=== PATIENT | female | born 1940 | race Caucasian/White ===

== ENCOUNTER 2019-03-22 07:36 | Day surgery (SDC) | payer MEDICARE, OTHER ==
[2019-03-19 09:45] LABS: BASOPHILS % (AUTO) 0.3 % (0-1); EOSINOPHILS # (AUTO) 0.1 X10'3 (0-0.9); EOSINOPHILS % (AUTO) 1.5 % (0-6); HEMATOCRIT 38.7 % (35.0-45.0); HEMOGLOBIN 12.7 g/dl (12.0-16.0); LYMPHOCYTES # (AUTO) 0.6 X10'3 (1.1-4.8); LYMPHOCYTES % (AUTO) 14.1 % (21-51); MEAN CORPUSCULAR HEMOGLOBIN 31.1 PG (27.0-31.0); MEAN CORPUSCULAR HGB CONC 32.8 g/dL (33.0-36.5); MEAN CORPUSCULAR VOLUME 94.8 FL (78-98); MEAN PLATELET VOLUME 8.5 FL (7.4-10.4); MONOCYTES # (AUTO) 0.4 X10'3 (0-0.9); MONOCYTES % (AUTO) 9.2 % (2-12); NEUTROPHILS # (AUTO) 3.2 X10'3 (1.8-7.7); NEUTROPHILS % (AUTO) 74.9 % (42-75); PLATELET COUNT 104 X10'3 (140-440); RED BLOOD COUNT 4.08 X10'6 (4.20-5.60); WHITE BLOOD COUNT 4.3 X10'3 (4.5-11.0)
[2019-03-19 09:58] LABS: ALBUMIN 3.7 G/DL (3.4-5.0); ANION GAP 8 (8-16); BLOOD UREA NITROGEN 33 MG/DL (7-18); BUN/CREATININE RATIO 28.7 (6.6-38.0); CALCIUM 9.6 MG/DL (8.5-10.1); CHLORIDE 105 MMOL/L (99-107); CREATININE 1.15 MG/DL (0.40-0.90); GLUCOSE 121 MG/DL (70-104); POTASSIUM 4.8 MMOL/L (3.5-5.1); SODIUM 139 MMOL/L (135-145); TOTAL CARBON DIOXIDE 26.5 MMOL/L (24-32); eGFR 46 ML/MIN
[2019-03-19 10:01] LABS: PARTIAL THROMBOPLASTIN TIME 40 SECONDS (22-32)
[2019-03-22] VITALS (11 sets, daily range): BP systolic 105–122; BP diastolic 54–71
[~2019-03-22] VITALS: Ht 162.6 cm; Wt 93.4 kg
[2019-03-22] MEDS ORDERED: LORazepam 0.5 MG tablet PO PRN (08:05)
[2019-03-22] MEDS ORDERED: diphenhydrAMINE 25mg capsule PO PRN (08:05)
[2019-03-22] MEDS ORDERED: normal saline 1,000 ML IV SCH (08:05)
[2019-03-22] MEDS ORDERED: LISI-642 PO (08:17)
[2019-03-22] MEDS ORDERED: WARF5TAB PO (08:17)
[2019-03-22] MEDS ORDERED: FURO-150 PO (08:24)
[2019-03-22] MEDS ORDERED: ASCO1TAB39 PO (08:24)
[2019-03-22] MEDS ORDERED: DILT180C90 PO (08:24)
[2019-03-22] MEDS ORDERED: CHOL10002 PO (08:24)
[2019-03-22] MEDS ORDERED: METF500T PO (08:24)
[2019-03-22] MEDS ORDERED: POTA10TA19 PO (08:24)
[2019-03-22] MEDS ORDERED: ENOX40SY7 SUBCUT (08:24)
[2019-03-22] MEDS ORDERED: iohexol 350MG/ML 100ml bottle IV ONE (09:14)
[2019-03-22] MEDS ORDERED: midazolam 2 mg/2 ml injection ONE (09:14)
[2019-03-22] MEDS ORDERED: fentaNYL/PF 50MCG/1 ML 2ML syringe ONE (09:14)
[2019-03-22] MEDS ORDERED: LIDOcaine 1% (10mg/ml)w/preservative injection 20ml MDV ONE (09:14)
[2019-05-21] MEDS ORDERED: POTA-82 PO (11:15)
[2019-05-21] MEDS ORDERED: WARF6TAB49 PO (11:16)
[2019-05-21] MEDS ORDERED: FURO-149 PO (11:16)
== END 2019-03-22 14:40 | disposition home or self-care (01) ==
LOC: SSTAY O 07:36
PROVIDERS: ATTEND Internal Medicine Interventional Cardiology
DX: I25.10 Atherosclerotic heart disease of native coronary artery without angina pectoris (principal); I36.1 Nonrheumatic tricuspid (valve) insufficiency; I10 Essential (primary) hypertension; E11.9 Type 2 diabetes mellitus without complications; I48.2 Chronic atrial fibrillation; Z85.3 Personal history of malignant neoplasm of breast; Z79.899 Other long term (current) drug therapy; Z79.84 Long term (current) use of oral hypoglycemic drugs; Z79.01 Long term (current) use of anticoagulants; Z88.0 Allergy status to penicillin
CPT/HCPCS: 36415; 80048; 82948; 85025; 85610; 85730; 93458; 99152; C1769; J1644; J2001; J2250; J3010; J7030; Q0163; Q9967; A4620; A6258

== ENCOUNTER 2019-05-22 05:13 | Inpatient (IN) | payer MEDICARE, OTHER ==
[2019-05-17 09:13] LABS: ALANINE AMINOTRANSFERASE 25 U/L (12-78); ALBUMIN 3.9 G/DL (3.4-5.0); ALBUMIN/GLOBULIN RATIO 0.8 (1.1-1.5); ALKALINE PHOSPHATASE 86 IU/L (46-116); ANION GAP 10 (8-16); ASPARTATE AMINO TRANSFERASE 21 U/L (10-37); BILIRUBIN,TOTAL 1.1 MG/DL (0.1-1.0); BLOOD UREA NITROGEN 34 MG/DL (7-18); BUN/CREATININE RATIO 27.2 (6.6-38.0); CALCIUM 9.7 MG/DL (8.5-10.1); CHLORIDE 103 MMOL/L (99-107); CREATININE 1.25 MG/DL (0.40-0.90); GLUCOSE 121 MG/DL (70-104); POTASSIUM 4.3 MMOL/L (3.5-5.1); SODIUM 139 MMOL/L (135-145); TOTAL CARBON DIOXIDE 26.1 MMOL/L (24-32); TOTAL PROTEIN 8.7 G/DL (6.4-8.2); eGFR 42 ML/MIN
[2019-05-20 14:42] LABS: BASOPHILS % (AUTO) 0.1 % (0-1); EOSINOPHILS # (AUTO) 0.2 X10'3 (0-0.9); EOSINOPHILS % (AUTO) 3.9 % (0-6); LYMPHOCYTES # (AUTO) 0.8 X10'3 (1.1-4.8); LYMPHOCYTES % (AUTO) 14.8 % (21-51); MEAN CORPUSCULAR HEMOGLOBIN 31.9 PG (27.0-31.0); MEAN CORPUSCULAR HGB CONC 33.7 g/dL (33.0-36.5); MEAN CORPUSCULAR VOLUME 94.6 FL (78-98); MEAN PLATELET VOLUME 7.8 FL (7.4-10.4); MONOCYTES # (AUTO) 0.5 X10'3 (0-0.9); MONOCYTES % (AUTO) 9.7 % (2-12); NEUTROPHILS # (AUTO) 3.8 X10'3 (1.8-7.7); NEUTROPHILS % (AUTO) 71.5 % (42-75); PRE OP HEMATOCRIT 37.1 % (35.0-45.0); PRE OP HEMOGLOBIN 12.5 g/dL (12.0-16.0); PRE OP PLATELET COUNT 157 X10'3 (140-440); RED BLOOD COUNT 3.92 X10'6 (4.20-5.60); RED CELL DISTRIBUTION WIDTH 15.2 % (11.5-14.5)
[2019-05-20 14:42] LABS: CLARITY,URINE SLIGHTLY CLOUDY (Clear); COLOR,URINE YELLOW (Yellow); GLUCOSE, URINE NEGATIVE (Neg); KETONES,URINE NEGATIVE (Neg); LEUKOCYTE ESTERASE ,URINE TRACE (Neg); NITRITES, URINE POSITIVE (Neg); OCCULT BLOOD,URINE TRACE-INTACT (Neg); PH,URINE 6.5 (4.8-8.0); PROTEIN,URINE NEGATIVE (Neg); UROBILINOGEN,URINE 0.2 E.U/dL (0.2-1.0)
[2019-05-20 14:45] LABS: UA COLLECTION TYPE OTHER
[2019-05-20 14:48] LABS: PRE OP INR 1.1 INR; PRE OP PROTIME 11.9 SECONDS (9.0-12.0)
[2019-05-20 14:57] LABS: BACTERIA,URINE 4+ /HPF (Neg); MUCUS STRANDS FEW /LPF (Neg); RBC,URINE 0-2 /HPF (0-2); SQUAMOUS EPITHELIAL CELL,UR FEW /LPF (FEW)
[2019-05-21 06:45] LABS: ABG BASE EXCESS -0.2 mmol/L (-2.0-3.0); ABG HCO3 23.7 mmol/L (22.0-26.0); ABG PCO2 (T) 36.4 mmHg (35.0-45.0); ABG PH (T) 7.432 (7.350-7.450); ABG PO2 (T) 87.8 mmHg (83-108); ALLEN'S TEST Positive; FCOHb 0.5 % (0.5-1.5); FMetHb 0.1 % (0.3-1.12); FO2Hb 96.4 % (94-100); TOTAL HEMOGLOBIN 12.8 G/dl (12.0-16.0)
[2019-05-22] VITALS (17 sets, daily range): BP systolic 102–134; BP diastolic 50–70
[~2019-05-22] VITALS: Ht 162.6 cm; Wt 92.4 kg
[~2019-05-22 05:13] MED LIST: ASCO1TAB39 PO; CHOL10002 PO; DILT180C90 PO; FURO-149 PO; LISI-642 PO; MALTODEXTRIN/FRUCTOSE 0.68 KCAL/ML LIQUID 296ML BOTTLE PO ONE; METF500T PO; POTA-82 PO; ROPIVAcaine 0.5% (5mg/ml) 30ml vial ONE; WARF6TAB49 PO; iohexol 350MG/ML 100ml bottle IV ONE; ringers solution, lacted 1,000 ML IV SCH
[2019-05-22] MEDS ORDERED: MIDAZolam 5mg/ml 2ml vial IV ONE (05:30)
[2019-05-22] MEDS ORDERED: famotidine 20mg tablet PO ONE (05:30)
[2019-05-22] MEDS ORDERED: vancomycin inj 1,500 MG in normal saline 300ml IV soln IV ONE (05:30)
[2019-05-22] MEDS ORDERED: gabapentin 400mg capsule PO ONE (06:00)
[2019-05-22] MEDS ORDERED: MESSAGE TO NURSING PO ONE (06:00)
[2019-05-22] MEDS ORDERED: cefazolin/dext.iso 2gm/50ml 50 ML IV ONE (06:00)
[2019-05-22] MEDS ORDERED: metoprolol tartrate 12.5mg (1/2 tablet) PO ONE (06:00)
[2019-05-22] MEDS ORDERED: insulin regular, human 100 UNIT in normal saline 100ml IV soln 99 ML IV SCH ×2 (06:00)
[2019-05-22] MEDS ORDERED: mupirocin 2% nasal ointment 1gm UD NS ONE (06:00)
[2019-05-22] MEDS ORDERED: LIDOcaine 1% (10mg/ml) 2ml vial ONE (06:50)
[2019-05-22] MEDS ORDERED: SUFENTANIL CITRATE 50 MCG/ML 2ml ampule IV ONE (07:16)
[2019-05-22] MEDS ORDERED: midazolam 2 mg/2 ml injection ONE (07:17)
[2019-05-22] MEDS ORDERED: protamine sulf. 10mg/ml inj. IV ONE (07:48)
[2019-05-22] MEDS ORDERED: DOPamine/D5W 400mg/250ml bag IV ONE (07:48)
[2019-05-22] MEDS ORDERED: NORepinephrine bitartrate 8 MG in NS 250 ML BAG (32 mcg/ml) IV ONE ×2 (07:48→08:00)
[2019-05-22] MEDS ORDERED: isoflurane 100ml inhalation liquid IH ONE (07:48)
[2019-05-22] MEDS ORDERED: INSULIN R 100 UNIT in NS 100ML (1 UNIT/1 ML) BAG IV ONE (07:48)
[2019-05-22] MEDS ORDERED: aminocaproic acid 250 MG/1 ML inj. ONE (08:00)
[2019-05-22] MEDS ORDERED: potassium Cl 2 mEq/ml inj IV ONE (08:00)
[2019-05-22] MEDS ORDERED: LIDOcaine 2% (20 mg/ml) 5ml cardiac syringe ONE (08:00)
[2019-05-22] MEDS ORDERED: magnesium sulf 1 GM/2 ML ONE (08:00)
[2019-05-22] MEDS ORDERED: calcium chloride 100 MG/1 ML inj IV ONE (08:00)
[2019-05-22] MEDS ORDERED: sodium bicarbonate (8.4%) inj. 1 MEQ/ML ML ONE (08:00)
[2019-05-22] MEDS ORDERED: albumin (human) 25% 100 ML IV solution IV ONE (08:00)
[2019-05-22] MEDS ORDERED: heparin 10,000 units/1 ML INJ ONE (08:00)
[2019-05-22] MEDS ORDERED: methylPREDNISolone sod succ 1000mg vial ONE (08:00)
[2019-05-22] MEDS ORDERED: heparin 1,000 units/ml 10ml inj ONE (08:00)
[2019-05-22] MEDS ORDERED: phenylephrine 10mg/ml inj. ONE ×2 (08:00→13:18)
[2019-05-22 08:26] LABS: ABG HCO3 23.7 mmol/L (22.0-26.0); ABG OXYGEN SATURATION 99.4 % (95-98); ABG PCO2 35.5 mmHg (35.0-45.0); ABG PH 7.443 (7.350-7.450); ABG PO2 276.5 mmHg (60.0-100.0); CL (ABG) 102 mmol/L (99-107); FCOHb 0.6 % (0.5-1.5); FMetHb 0.4 % (0.3-1.12); FO2Hb 98.4 % (94-100); GLUCOSE (ABG) 102 mg/dl (70-104); IONIZED CA (ABG) 1.12 mmol/L (1.03-1.32); K (ABG) 4.3 mmol/L (3.3-5.1); NA (ABG) 136 mmol/L (135-145); TOTAL HEMOGLOBIN 11.7 G/dl (12.0-16.0)
[2019-05-22 09:20] LABS: ABG BASE EXCESS 1.2 mmol/L (-2.0-3.0); ABG HCO3 24.7 mmol/L (22.0-26.0); ABG OXYGEN SATURATION 99.4 % (95-98); ABG PCO2 34.5 mmHg (35.0-45.0); ABG PH 7.473 (7.350-7.450); ABG PO2 382.1 mmHg (60.0-100.0); CL (ABG) 100 mmol/L (99-107); FCOHb 0.5 % (0.5-1.5); FMetHb 0.4 % (0.3-1.12); FO2Hb 98.5 % (94-100); GLUCOSE (ABG) 110 mg/dl (70-104); IONIZED CA (ABG) 1.03 mmol/L (1.03-1.32); K (ABG) 4.1 mmol/L (3.3-5.1); NA (ABG) 136 mmol/L (135-145); TOTAL HEMOGLOBIN 8.8 G/dl (12.0-16.0)
[2019-05-22] MEDS ORDERED: ipratropium/albuterol 3ml nebule IH PRN (09:25)
[2019-05-22 09:46] LABS: ABG BASE EXCESS VENOUS -0.6 mmol/L; ABG HCO3 VENOUS 26.1 mmol/L; ABG PCO2 VENOUS 53.7 mmHg; ABG PO2 VENOUS 63.3 mmHg; CL (ABG) 100 mmol/L (99-107); FCOHb VENOUS 0.9 %; FHHb VENOUS 11.3 %; FMetHb VENOUS 0.4 %; FO2Hb VENOUS 87.4 %; GLUCOSE (ABG) 120 mg/dl (70-104); IONIZED CA (ABG) 1.08 mmol/L (1.03-1.32); K (ABG) 5.2 mmol/L (3.3-5.1); NA (ABG) 135 mmol/L (135-145); TOTAL HEMOGLOBIN 8.7 G/dl (12.0-16.0)
[2019-05-22 10:10] LABS: ABG BASE EXCESS -0.5 mmol/L (-2.0-3.0); ABG HCO3 23.6 mmol/L (22.0-26.0); ABG OXYGEN SATURATION 99.5 % (95-98); ABG PCO2 35.9 mmHg (35.0-45.0); ABG PH 7.435 (7.350-7.450); ABG PO2 399.9 mmHg (60.0-100.0); CL (ABG) 101 mmol/L (99-107); FCOHb 0.5 % (0.5-1.5); FMetHb 0.1 % (0.3-1.12); FO2Hb 98.9 % (94-100); GLUCOSE (ABG) 141 mg/dl (70-104); IONIZED CA (ABG) 1.06 mmol/L (1.03-1.32); K (ABG) 5.4 mmol/L (3.3-5.1); NA (ABG) 134 mmol/L (135-145)
[2019-05-22 10:41] LABS: ABG BASE EXCESS 2.6 mmol/L (-2.0-3.0); ABG HCO3 26.8 mmol/L (22.0-26.0); ABG OXYGEN SATURATION 99.2 % (95-98); ABG PCO2 39.4 mmHg (35.0-45.0); ABG PO2 308.6 mmHg (60.0-100.0); CL (ABG) 101 mmol/L (99-107); FCOHb 0.7 % (0.5-1.5); FMetHb 0.5 % (0.3-1.12); GLUCOSE (ABG) 154 mg/dl (70-104); IONIZED CA (ABG) 1.26 mmol/L (1.03-1.32); K (ABG) 5.3 mmol/L (3.3-5.1); NA (ABG) 136 mmol/L (135-145); TOTAL HEMOGLOBIN 8.9 G/dl (12.0-16.0)
[2019-05-22 10:55] LABS: ACT @ 1.70 U 371 SEC (193-297); ACT @ 2.84 U 551 SEC (260-420); BASELINE ACT 168 SEC (101-148); PATIENT WEIGHT 91.0k KG
[2019-05-22 11:25] LABS: ABG BASE EXCESS VENOUS -0.1 mmol/L; ABG HCO3 VENOUS 25.2 mmol/L; ABG PCO2 VENOUS 44.2 mmHg; ABG PO2 VENOUS 40.9 mmHg; CL (ABG) 101 mmol/L (99-107); FCOHb VENOUS 0.9 %; FHHb VENOUS 26.3 %; FMetHb VENOUS 0.5 %; FO2Hb VENOUS 72.3 %; GLUCOSE (ABG) 99 mg/dl (70-104); IONIZED CA (ABG) 1.23 mmol/L (1.03-1.32); K (ABG) 4.5 mmol/L (3.3-5.1); NA (ABG) 135 mmol/L (135-145); TOTAL HEMOGLOBIN 9.6 G/dl (12.0-16.0)
[2019-05-22] MEDS ORDERED: DOPamine 400mg/D5W 250ml 250 ML IV PRN (12:11)
[2019-05-22] MEDS ORDERED: sodium chloride 0.45% 1,000 ML IV SCH (12:11)
[2019-05-22] MEDS ORDERED: nitroGLYCERIN-Tridil 50MG/D5W 250 ML IV PRN (12:11)
[2019-05-22] MEDS ORDERED: niCARDipine-NS 40mg/200ml IVPB 200 ML IV PRN (12:11)
[2019-05-22] MEDS ORDERED: Neutra Phos packet PO PRN (12:15)
[2019-05-22] MEDS ORDERED: HYDROcodone/acetaminophen 10/325mg tab PO PRN (12:15)
[2019-05-22] MEDS ORDERED: normal saline 250ml IV soln 250 ML IV PRN (12:15)
[2019-05-22] MEDS ORDERED: dextrose 50%-water 50ml dispensing syringe IV PRN (12:15)
[2019-05-22] MEDS ORDERED: magnesium hydroxide 30ml (MOM) UD suspension PO PRN (12:15)
[2019-05-22] MEDS ORDERED: magnesium 2GM in 50ml NS 50 ML IV PRN (12:15)
[2019-05-22] MEDS ORDERED: insulin regular, human inj. 100 UNITS in normal saline 100ml IV soln 100 ML IV SCH ×2 (12:15)
[2019-05-22] MEDS ORDERED: sodium phosphate inj. 15 MMOL in dextrose 5%-water 150 ML IV PRN (12:15)
[2019-05-22] MEDS ORDERED: pantoprazole 40 MG vial IV ONE (12:15)
[2019-05-22] MEDS ORDERED: acetaminophen 325mg tablet PO PRN (12:15)
[2019-05-22] MEDS ORDERED: metoclopramide 5 mg/ml inj IV PRN (12:15)
[2019-05-22] MEDS ORDERED: magnesium 4gm in 100ml NS 100 ML IV PRN (12:15)
[2019-05-22] MEDS ORDERED: ondansetron/PF 4mg/2ml inj IV PRN (12:15)
[2019-05-22] MEDS ORDERED: morphine 4 MG/ML inj SYRINge IV PRN ×2 (12:15)
[2019-05-22] MEDS ORDERED: potassium Cl 20 mEq SR tablet PO PRN (12:15)
[2019-05-22] MEDS ORDERED: sodium phosphate inj. 30 MMOL in dextrose 5%-water 250 ML IV PRN (12:15)
[2019-05-22] MEDS: albumin (Human) 5% 250ml 250 ML IV PRN ×3 (12:45→16:27)
[2019-05-22 12:46] LABS: ABG BASE EXCESS -3.1 mmol/L (-2.0-3.0); ABG HCO3 22.1 mmol/L (22.0-26.0); ABG OXYGEN SATURATION 95.1 % (95-98); ABG PCO2 (T) 40.4 mmHg (35.0-45.0); ABG PH (T) 7.356 (7.350-7.450); ABG PO2 (T) 81.4 mmHg (83-108); FCOHb 0.3 % (0.5-1.5); FMetHb 0.2 % (0.3-1.12); FO2Hb 94.6 % (94-100); MINUTE VOLUME 7 L/min; PEEP 5 cm H2O; RESPIRATORY RATE 12 b/min; RESPIRATORY RATE (OBSERVED) 12 b/min; TIDAL VOLUME 550 mL; TOTAL HEMOGLOBIN 13.2 G/dl (12.0-16.0)
[2019-05-22 12:53] LABS: BASOPHILS % (AUTO) 0.1 % (0-1); EOSINOPHILS # (AUTO) 0.1 X10'3 (0-0.9); EOSINOPHILS % (AUTO) 0.9 % (0-6); HEMATOCRIT 37.5 % (35.0-45.0); HEMOGLOBIN 12.7 g/dl (12.0-16.0); LYMPHOCYTES # (AUTO) 0.8 X10'3 (1.1-4.8); LYMPHOCYTES % (AUTO) 8.2 % (21-51); MEAN CORPUSCULAR HEMOGLOBIN 32.2 PG (27.0-31.0); MEAN CORPUSCULAR VOLUME 94.8 FL (78-98); MEAN PLATELET VOLUME 7.7 FL (7.4-10.4); MONOCYTES # (AUTO) 0.8 X10'3 (0-0.9); MONOCYTES % (AUTO) 8.5 % (2-12); NEUTROPHILS # (AUTO) 7.7 X10'3 (1.8-7.7); NEUTROPHILS % (AUTO) 82.3 % (42-75); PLATELET COUNT 112 X10'3 (140-440); RED BLOOD COUNT 3.96 X10'6 (4.20-5.60); WHITE BLOOD COUNT 9.3 X10'3 (4.5-11.0)
[2019-05-22] MEDS ORDERED: insulin Lispro (HumaLOG) vial - multi-dose SQ SCH (13:00)
[2019-05-22 13:11] LABS: ALANINE AMINOTRANSFERASE 28 U/L (12-78); ALBUMIN 2.9 G/DL (3.4-5.0); ALKALINE PHOSPHATASE 51 IU/L (46-116); ANION GAP 10 (8-16); BILIRUBIN,TOTAL 1.2 MG/DL (0.1-1.0); BLOOD UREA NITROGEN 15 MG/DL (7-18); CHLORIDE 107 MMOL/L (99-107); CREATININE 1.07 MG/DL (0.40-0.90); GLUCOSE 159 MG/DL (70-104); MAGNESIUM 3.2 MG/DL (1.5-2.4); SODIUM 142 MMOL/L (135-145); TOTAL CARBON DIOXIDE 25.2 MMOL/L (24-32); TOTAL PROTEIN 5.8 G/DL (6.4-8.2); eGFR 50 ML/MIN
[2019-05-22 13:14] LABS: ASPARTATE AMINO TRANSFERASE 53 U/L (10-37); POTASSIUM 4.3 MMOL/L (3.5-5.1)
[2019-05-22] MEDS ORDERED: LIDOcaine 2% (20mg/ml) 5ml vial ONE (13:18)
[2019-05-22] MEDS ORDERED: acetaminophen 1,000mg/100ml IV 100 ML IV ONE (13:18)
[2019-05-22] MEDS ORDERED: rocuronium 10mg/ml inj IV ONE (13:18)
[2019-05-22] MEDS ORDERED: etomidate 2mg/ml inj. ONE (13:18)
[2019-05-22] MEDS ORDERED: epiNEPHrine 1 mg/ml inj ONE (13:18)
[2019-05-22 13:23] LABS: PARTIAL THROMBOPLASTIN TIME 29 SECONDS (22-32)
--- NOTE | 2019-05-22 13:23 | NUR ---
Nutrition consult: Pt s/p MVR, will need education once stable prior to d/c Addendum: 05/22/19 at [address] Amended: Links added.
[2019-05-22] MEDS: potassium Cl 20mEq/100mL bag 100 ML IV PRN ×3 (13:26→18:48)
[2019-05-22] MEDS: gabapentin 300mg capsule PO SCH ×2 (13:50→20:20)
[2019-05-22] MEDS: insulin regular, human 100 UNIT in normal saline 100ml IV soln 99 ML IV SCH ×2 (13:50)
[2019-05-22] MEDS ORDERED: albumin (Human) 5% 250ml 250 ML IV ONE ×2 (14:04→17:00)
[2019-05-22] MEDS ORDERED: NORepinephrine 8mg/ 250ml NS 250 ML IV SCH (14:05)
[2019-05-22 14:36] LABS: ACTIVATED CLOTTING TIME 135 SEC (101-148)
[2019-05-22] MEDS: ceFAZolin 1GM/D5W- ADD-VANTAGE 50 ML IV SCH ×2 (16:10→23:36)
--- NOTE | 2019-05-22 16:19 | NUR ---
1224 Received to room 2013, accompanied by MDs and surgical crew. Placed on ventilator, to monitoring analyst, arterial line and PA line pressure monitored. Chest tubes to suction at 20 cm. Larson cath to gravity drainage. Dressings are dry and intact. See assessment record. All vasoactive drugs are infusing via central line.
[2019-05-22 16:56] LABS: MAGNESIUM 2.9 MG/DL (1.5-2.4)
[2019-05-22 16:57] LABS: PHOSPHORUS 3.2 MG/DL (2.3-4.5)
[2019-05-22 16:58] LABS: POTASSIUM 5.2 MMOL/L (3.5-5.1)
[2019-05-22] MEDS ORDERED: albumin (Human) 5% 250ml 250 ML IV PRN (17:00)
[2019-05-22 18:10] LABS: BASOPHILS % (AUTO) 0.1 % (0-1); EOSINOPHILS % (AUTO) 0.1 % (0-6); HEMATOCRIT 33.2 % (35.0-45.0); LYMPHOCYTES # (AUTO) 0.3 X10'3 (1.1-4.8); LYMPHOCYTES % (AUTO) 3.3 % (21-51); MEAN CORPUSCULAR HEMOGLOBIN 31.4 PG (27.0-31.0); MEAN CORPUSCULAR HGB CONC 33.1 g/dL (33.0-36.5); MEAN PLATELET VOLUME 7.9 FL (7.4-10.4); MONOCYTES # (AUTO) 0.3 X10'3 (0-0.9); NEUTROPHILS # (AUTO) 7.2 X10'3 (1.8-7.7); NEUTROPHILS % (AUTO) 92.5 % (42-75); PLATELET COUNT 98 X10'3 (140-440); RED CELL DISTRIBUTION WIDTH 15.2 % (11.5-14.5); WHITE BLOOD COUNT 7.8 X10'3 (4.5-11.0)
[2019-05-22 18:11] LABS: ABG BASE EXCESS -2.5 mmol/L (-2.0-3.0); ABG OXYGEN SATURATION 98.7 % (95-98); ABG PCO2 (T) 37.1 mmHg (35.0-45.0); ABG PH (T) 7.391 (7.350-7.450); ABG PO2 (T) 174.1 mmHg (83-108); FCOHb 0.3 % (0.5-1.5); FMetHb 0.3 % (0.3-1.12); FO2Hb 98.1 % (94-100); MINUTE VOLUME 7 L/min; PEEP 10 cm H2O; RESPIRATORY RATE 12 b/min; RESPIRATORY RATE (OBSERVED) 12 b/min; TIDAL VOLUME 550 mL; TOTAL HEMOGLOBIN 11.9 G/dl (12.0-16.0)
[2019-05-22 18:21] LABS: ALBUMIN 3.8 G/DL (3.4-5.0); ANION GAP 10 (8-16); BLOOD UREA NITROGEN 17 MG/DL (7-18); CALCIUM 8.3 MG/DL (8.5-10.1); CHLORIDE 109 MMOL/L (99-107); GLUCOSE 125 MG/DL (70-104); MAGNESIUM 2.8 MG/DL (1.5-2.4); PHOSPHORUS 2.9 MG/DL (2.3-4.5); POTASSIUM 4.4 MMOL/L (3.5-5.1); SODIUM 143 MMOL/L (135-145); TOTAL CARBON DIOXIDE 24.2 MMOL/L (24-32); eGFR 54 ML/MIN
--- NOTE | 2019-05-22 18:28 | NUR ---
Problems reprioritized. Patient report given, questions answered & plan of care reviewed with Gloria Ludwig RN.
--- NOTE | 2019-05-22 18:30 | NUR ---
Patient in room CICU 2013. I have received report from Denise SERRANO and had the opportunity to ask questions and assume patient care.
--- NOTE | 2019-05-22 19:00 | NUR ---
Patient opens eyes and following commands, moves all extremities. Physical assessment done as documented. Will continue to monitor.
[2019-05-22] MEDS: docusate sod 100mg capsule PO SCH (20:00)
--- NOTE | 2019-05-22 20:00 | NUR ---
Rate on ventilator turned down to 10. Will continue to monitor patient.
[2019-05-22] MEDS: mupirocin 2% nasal ointment 1gm UD NS SCH (20:20)
[2019-05-22] MEDS: vancomycin/NS 1 GM ADD-VANTAGE 250 ML IV SCH (20:20)
--- NOTE | 2019-05-22 22:00 | NUR ---
Rate on ventilator tuned down to 8. Patient over breathing the ventilator and tolerating well. Will continue to monitor.
--- NOTE | 2019-05-22 23:00 | NUR ---
Patient out on CPAP on ventilator and tolerating well. Following commands. Educated patient on plan of care for extubation. Will continue to monitor.
[2019-05-22 23:29] LABS: BASOPHILS % (AUTO) 0.1 % (0-1); EOSINOPHILS % (AUTO) 0 % (0-6); HEMATOCRIT 31.6 % (35.0-45.0); HEMOGLOBIN 10.6 g/dl (12.0-16.0); LYMPHOCYTES # (AUTO) 0.4 X10'3 (1.1-4.8); LYMPHOCYTES % (AUTO) 4.6 % (21-51); MEAN CORPUSCULAR HEMOGLOBIN 31.9 PG (27.0-31.0); MEAN CORPUSCULAR HGB CONC 33.5 g/dL (33.0-36.5); MEAN CORPUSCULAR VOLUME 95.2 FL (78-98); MONOCYTES # (AUTO) 0.3 X10'3 (0-0.9); MONOCYTES % (AUTO) 3.2 % (2-12); NEUTROPHILS # (AUTO) 7.7 X10'3 (1.8-7.7); NEUTROPHILS % (AUTO) 92.1 % (42-75); PLATELET COUNT 93 X10'3 (140-440); RED BLOOD COUNT 3.32 X10'6 (4.20-5.60); RED CELL DISTRIBUTION WIDTH 15.1 % (11.5-14.5); WHITE BLOOD COUNT 8.4 X10'3 (4.5-11.0)
[2019-05-22 23:35] LABS: ABG BASE EXCESS -3.5 mmol/L (-2.0-3.0); ABG HCO3 18.5 mmol/L (22.0-26.0); ABG PCO2 (T) 24.5 mmHg (35.0-45.0); ABG PH (T) 7.495 (7.350-7.450); ABG PO2 (T) 109.9 mmHg (83-108); FCOHb 0.3 % (0.5-1.5); FMetHb 0.2 % (0.3-1.12); FO2Hb 97.5 % (94-100); MINUTE VOLUME 7 L/min; PATIENT TEMPERATURE 36.8; PEEP 5 cm H2O; RESPIRATORY RATE (OBSERVED) 18 b/min; TOTAL HEMOGLOBIN 11.2 G/dl (12.0-16.0)
[2019-05-22 23:39] LABS: ALANINE AMINOTRANSFERASE 30 U/L (12-78); ALBUMIN 3.6 G/DL (3.4-5.0); ALBUMIN/GLOBULIN RATIO 1.4 (1.1-1.5); ALKALINE PHOSPHATASE 47 IU/L (46-116); ANION GAP 10 (8-16); ASPARTATE AMINO TRANSFERASE 59 U/L (10-37); BILIRUBIN,TOTAL 1.1 MG/DL (0.1-1.0); BLOOD UREA NITROGEN 18 MG/DL (7-18); BUN/CREATININE RATIO 18.2 (6.6-38.0); CHLORIDE 110 MMOL/L (99-107); CREATININE 0.99 MG/DL (0.40-0.90); GLUCOSE 127 MG/DL (70-104); POTASSIUM 4.7 MMOL/L (3.5-5.1); SODIUM 143 MMOL/L (135-145); TOTAL CARBON DIOXIDE 23.3 MMOL/L (24-32); TOTAL PROTEIN 6.2 G/DL (6.4-8.2); eGFR 55 ML/MIN
--- NOTE | 2019-05-22 23:45 | NUR ---
RT at beside to extubate patient. Patient extubated at 2345 without any issue and educated on IS and flutter valve. Patient also educated on sternal precautions . Will continue to monitor.
[2019-05-23] VITALS (24 sets, daily range): BP systolic 93–134; BP diastolic 44–61
[2019-05-23] MEDS: HYDROcodone/acetaminophen 10/325mg tab PO PRN ×2 (02:11→07:29)
[2019-05-23 03:56] LABS: BASOPHILS % (AUTO) 0 % (0-1); EOSINOPHILS % (AUTO) 0 % (0-6); HEMATOCRIT 30.5 % (35.0-45.0); HEMOGLOBIN 10.2 g/dl (12.0-16.0); LYMPHOCYTES # (AUTO) 0.4 X10'3 (1.1-4.8); LYMPHOCYTES % (AUTO) 3.8 % (21-51); MEAN CORPUSCULAR HEMOGLOBIN 31.9 PG (27.0-31.0); MEAN CORPUSCULAR HGB CONC 33.5 g/dL (33.0-36.5); MEAN CORPUSCULAR VOLUME 95.3 FL (78-98); MEAN PLATELET VOLUME 8.2 FL (7.4-10.4); MONOCYTES # (AUTO) 0.3 X10'3 (0-0.9); MONOCYTES % (AUTO) 3.3 % (2-12); NEUTROPHILS % (AUTO) 92.9 % (42-75); PLATELET COUNT 90 X10'3 (140-440); RED CELL DISTRIBUTION WIDTH 15.2 % (11.5-14.5); WHITE BLOOD COUNT 9.7 X10'3 (4.5-11.0)
[2019-05-23 04:06] LABS: PARTIAL THROMBOPLASTIN TIME 27 SECONDS (22-32)
[2019-05-23 04:18] LABS: ALANINE AMINOTRANSFERASE 29 U/L (12-78); ALBUMIN 3.5 G/DL (3.4-5.0); ALBUMIN/GLOBULIN RATIO 1.3 (1.1-1.5); ALKALINE PHOSPHATASE 44 IU/L (46-116); ANION GAP 8 (8-16); ASPARTATE AMINO TRANSFERASE 56 U/L (10-37); BILIRUBIN,TOTAL 0.9 MG/DL (0.1-1.0); BLOOD UREA NITROGEN 19 MG/DL (7-18); BUN/CREATININE RATIO 20.2 (6.6-38.0); CALCIUM 8.5 MG/DL (8.5-10.1); CHLORIDE 110 MMOL/L (99-107); CREATININE 0.94 MG/DL (0.40-0.90); GLUCOSE 129 MG/DL (70-104); MAGNESIUM 2.5 MG/DL (1.5-2.4); PHOSPHORUS 4.7 MG/DL (2.3-4.5); POTASSIUM 4.3 MMOL/L (3.5-5.1); SODIUM 143 MMOL/L (135-145); TOTAL PROTEIN 6.1 G/DL (6.4-8.2); eGFR 58 ML/MIN
[2019-05-23] MEDS: potassium Cl 20mEq/100mL bag 100 ML IV PRN (04:38)
[2019-05-23] MEDS: insulin regular, human 100 UNIT in normal saline 100ml IV soln 99 ML IV SCH ×2 (06:00)
--- NOTE | 2019-05-23 06:23 | NUR ---
Problems reprioritized. Patient report given, questions answered & plan of care reviewed with Dee SERRANO.
--- NOTE | 2019-05-23 06:25 | NUR ---
Patient in room CICU 2013. I have received report from Gloria SERRANO and had the opportunity to ask questions and assume patient care.
--- NOTE | 2019-05-23 06:36 | NUR ---
Patient in room CICU 2013. I have received report from MAGGIE Castro and had the opportunity to ask questions and assume patient care.
[2019-05-23] MEDS: cholecalciferol (vitamin D) 400 unit tablet PO SCH (07:21)
[2019-05-23] MEDS: docusate sod 100mg capsule PO SCH ×2 (07:21→20:42)
[2019-05-23] MEDS: gabapentin 300mg capsule PO SCH ×3 (07:21→20:42)
[2019-05-23] MEDS: atorvastatin 10mg tablet PO SCH (07:22)
[2019-05-23] MEDS: ceFAZolin 1GM/D5W- ADD-VANTAGE 50 ML IV SCH ×2 (07:22→15:53)
[2019-05-23] MEDS: mupirocin 2% nasal ointment 1gm UD NS SCH ×2 (07:23→20:41)
[2019-05-23] MEDS: metoprolol tartrate 12.5mg (1/2 tablet) PO SCH ×2 (08:00→20:00)
[2019-05-23] MEDS ORDERED: aspirin 325mg tablet, delayed-release (Ecotrin) PO SCH (08:00)
[2019-05-23] MEDS: vancomycin/NS 1 GM ADD-VANTAGE 250 ML IV SCH ×2 (08:05→20:41)
[2019-05-23] MEDS ORDERED: dextrose ORAL solution 15 GM/59 ML bottle PO PRN ×2 (09:00)
[2019-05-23] MEDS ORDERED: dextrose 50%-water 50ml dispensing syringe IV PRN ×2 (09:00)
--- NOTE | 2019-05-23 09:55 | NUR ---
PA line and introducer removed; pressure applied until hemostasis achieved. New dressing applied to central line site. No abnormal signs of bleeding at PA site. will continue to monitor.
--- NOTE | 2019-05-23 12:21 | NUR ---
Restarted low dose of Levophed at 2mcg/hr as patient sleeps as her systolic dips down into low 90s and MAP does not maintain. PA site leaking some serous/serosanginous fluid. Dressing changed again.
--- NOTE | 2019-05-23 14:31 | NUR ---
Levo Off again, patient up to bedside chair
[2019-05-23] MEDS: insulin glargine (Lantus) pen - multi-dose SQ SCH (15:08)
[2019-05-23] MEDS: insulin Lispro (HumaLOG) vial - multi-dose SQ SCH (19:35)
[2019-05-24] VITALS (19 sets, daily range): BP systolic 100–146; BP diastolic 44–74
[2019-05-24] MEDS: ceFAZolin 1GM/D5W- ADD-VANTAGE 50 ML IV SCH (00:17)
[2019-05-24 03:44] LABS: BASOPHILS % (AUTO) 0.1 % (0-1); EOSINOPHILS % (AUTO) 0 % (0-6); HEMOGLOBIN 9.4 g/dl (12.0-16.0); LYMPHOCYTES # (AUTO) 0.4 X10'3 (1.1-4.8); LYMPHOCYTES % (AUTO) 3.5 % (21-51); MEAN CORPUSCULAR HEMOGLOBIN 31.9 PG (27.0-31.0); MEAN CORPUSCULAR HGB CONC 33.4 g/dL (33.0-36.5); MEAN CORPUSCULAR VOLUME 95.7 FL (78-98); MEAN PLATELET VOLUME 8.6 FL (7.4-10.4); MONOCYTES # (AUTO) 0.7 X10'3 (0-0.9); MONOCYTES % (AUTO) 6.1 % (2-12); NEUTROPHILS # (AUTO) 10.8 X10'3 (1.8-7.7); NEUTROPHILS % (AUTO) 90.3 % (42-75); PLATELET COUNT 96 X10'3 (140-440); RED BLOOD COUNT 2.93 X10'6 (4.20-5.60); RED CELL DISTRIBUTION WIDTH 15.1 % (11.5-14.5)
[2019-05-24 03:53] LABS: ALBUMIN 3.4 G/DL (3.4-5.0); ANION GAP 6 (8-16); BLOOD UREA NITROGEN 31 MG/DL (7-18); BUN/CREATININE RATIO 27.4 (6.6-38.0); CALCIUM 8.7 MG/DL (8.5-10.1); CHLORIDE 106 MMOL/L (99-107); CREATININE 1.13 MG/DL (0.40-0.90); GLUCOSE 199 MG/DL (70-104); MAGNESIUM 2.5 MG/DL (1.5-2.4); PHOSPHORUS 3.7 MG/DL (2.3-4.5); POTASSIUM 5.6 MMOL/L (3.5-5.1); SODIUM 137 MMOL/L (135-145); TOTAL CARBON DIOXIDE 24.6 MMOL/L (24-32); eGFR 47 ML/MIN
[2019-05-24] MEDS: insulin regular, human 100 UNIT in normal saline 100ml IV soln 99 ML IV SCH ×2 (06:00)
--- NOTE | 2019-05-24 06:15 | NUR ---
Patient in room CICU 2012. I have received report from machinist 2nd shift and had the opportunity to ask questions and assume patient care.
[2019-05-24] MEDS: metoprolol tartrate 12.5mg (1/2 tablet) PO SCH (08:05)
[2019-05-24] MEDS: pantoprazole 40mg Tablet.DR PO SCH (08:05)
[2019-05-24] MEDS: cholecalciferol (vitamin D) 400 unit tablet PO SCH (08:05)
[2019-05-24] MEDS: atorvastatin 10mg tablet PO SCH (08:05)
[2019-05-24] MEDS: aspirin 81mg tablet.DR PO SCH (08:06)
[2019-05-24] MEDS: docusate sod 100mg capsule PO SCH ×2 (08:06→20:48)
[2019-05-24] MEDS: gabapentin 300mg capsule PO SCH ×2 (08:06→20:49)
[2019-05-24] MEDS: mupirocin 2% nasal ointment 1gm UD NS SCH (08:06)
[2019-05-24] MEDS ORDERED: furosemide 40mg/4ml inj IV ONE (08:20)
[2019-05-24] MEDS ORDERED: potassium Cl 20 mEq SR tablet PO PRN ×2 (08:25)
[2019-05-24] MEDS ORDERED: potassium CL 10mEq/100ml bag 100 ML IV PRN ×2 (08:25)
[2019-05-24] MEDS ORDERED: magnesium 2GM in 50ml NS 50 ML IV PRN (08:25)
[2019-05-24] MEDS ORDERED: magnesium 4gm in 100ml NS 100 ML IV PRN (08:25)
[2019-05-24] MEDS ORDERED: magnesium Cl slow-release 64mg tablet PO PRN (08:25)
[2019-05-24] MEDS: insulin Lispro (HumaLOG) vial - multi-dose SQ SCH ×3 (08:39→20:19)
[2019-05-24 13:07] LABS: CLARITY,URINE CLEAR (Clear); GLUCOSE, URINE NEGATIVE (Neg); KETONES,URINE NEGATIVE (Neg); LEUKOCYTE ESTERASE ,URINE MODERATE (Neg); NITRITES, URINE POSITIVE (Neg); OCCULT BLOOD,URINE SMALL (Neg); PH,URINE 5.5 (4.8-8.0); PROTEIN,URINE NEGATIVE (Neg); UROBILINOGEN,URINE 0.2 E.U/dL (0.2-1.0)
[2019-05-24 13:08] LABS: COLOR,URINE COLORLESS (Yellow); UA COLLECTION TYPE FOLEY CATH
[2019-05-24 13:27] LABS: SQUAMOUS EPITHELIAL CELL,UR MODERATE /LPF (FEW)
[2019-05-24 13:28] LABS: YEAST FEW /HPF (NEGATIVE)
[2019-05-24 13:31] LABS: BACTERIA,URINE FEW /HPF (Neg); RBC,URINE 0-2 /HPF (0-2); TRANSITIONAL EPI CELLS,URINE FEW /HPF
[2019-05-24] MEDS: diltiazem CD 180mg cap (once-daily) PO SCH (14:44)
--- NOTE | 2019-05-24 17:30 | NUR ---
Transferred to RANDLEMAN on monitor
--- NOTE | 2019-05-24 17:42 | NUR ---
RECEIVED PATIENT AND REPORT FROM [facility]. PLACED PATIENT IN ROOM 314. PATIENT UP IN CHAIR, CALL LIGHT IN REACH. DENIES CHEST PAIN, SOB AND ,OR, NAUSEA. Addendum: 05/24/19 at 1746 by Maureen Mariano RN Amended: Links added.
--- NOTE | 2019-05-24 18:00 | NUR ---
Patient in room MED 314. I have received report from Katty SERRANO and had the opportunity to ask questions and assume patient care.
[2019-05-24] MEDS: magnesium Cl slow-release 64mg tablet PO SCH (20:00)
[2019-05-24] MEDS: potassium Cl 20 mEq SR tablet PO SCH (20:00)
[2019-05-24] MEDS: lisinopril 2.5mg tablet PO SCH (20:52)
[2019-05-24] MEDS ORDERED: warfarin 5mg tablet PO ONE (21:00)
[2019-05-24] MEDS: insulin glargine (Lantus) pen - multi-dose SQ SCH (22:30)
[2019-05-25 02:00] VITALS: BP 91/46
[2019-05-25 06:00] VITALS: BP 95/38
--- NOTE | 2019-05-25 06:00 | NUR ---
Problems reprioritized. Patient report given, questions answered & plan of care reviewed with Hiwot SERRANO.
--- NOTE | 2019-05-25 06:10 | NUR ---
Patient in room MED 314. I have received report from MAGGIE Hunter and had the opportunity to ask questions and assume patient care.
[2019-05-25 07:40] LABS: BASOPHILS % (AUTO) 0.2 % (0-1); EOSINOPHILS % (AUTO) 0.4 % (0-6); HEMATOCRIT 29.4 % (35.0-45.0); HEMOGLOBIN 10.1 g/dl (12.0-16.0); LYMPHOCYTES # (AUTO) 1.1 X10'3 (1.1-4.8); LYMPHOCYTES % (AUTO) 10.5 % (21-51); MEAN CORPUSCULAR HEMOGLOBIN 32.6 PG (27.0-31.0); MEAN CORPUSCULAR HGB CONC 34.4 g/dL (33.0-36.5); MEAN CORPUSCULAR VOLUME 94.8 FL (78-98); MEAN PLATELET VOLUME 8.2 FL (7.4-10.4); MONOCYTES # (AUTO) 0.9 X10'3 (0-0.9); MONOCYTES % (AUTO) 8.3 % (2-12); NEUTROPHILS # (AUTO) 8.6 X10'3 (1.8-7.7); NEUTROPHILS % (AUTO) 80.6 % (42-75); PLATELET COUNT 114 X10'3 (140-440); RED CELL DISTRIBUTION WIDTH 15.4 % (11.5-14.5); WHITE BLOOD COUNT 10.7 X10'3 (4.5-11.0)
[2019-05-25 07:43] LABS: ALBUMIN 3.4 G/DL (3.4-5.0); ANION GAP 8 (8-16); BLOOD UREA NITROGEN 37 MG/DL (7-18); BUN/CREATININE RATIO 32.5 (6.6-38.0); CALCIUM 8.7 MG/DL (8.5-10.1); CHLORIDE 103 MMOL/L (99-107); CREATININE 1.14 MG/DL (0.40-0.90); GLUCOSE 112 MG/DL (70-104); MAGNESIUM 2.1 MG/DL (1.5-2.4); POTASSIUM 4.3 MMOL/L (3.5-5.1); SODIUM 138 MMOL/L (135-145); TOTAL CARBON DIOXIDE 26.9 MMOL/L (24-32); eGFR 46 ML/MIN
[2019-05-25] MEDS: cholecalciferol (vitamin D) 400 unit tablet PO SCH (07:58)
[2019-05-25] MEDS: docusate sod 100mg capsule PO SCH ×2 (07:58→19:58)
[2019-05-25] MEDS: pantoprazole 40mg Tablet.DR PO SCH (07:58)
[2019-05-25] MEDS: aspirin 81mg tablet.DR PO SCH (07:58)
[2019-05-25] MEDS: potassium Cl 20 mEq SR tablet PO SCH ×2 (07:59→19:58)
[2019-05-25] MEDS: gabapentin 300mg capsule PO SCH ×2 (07:59→19:58)
[2019-05-25] MEDS: atorvastatin 10mg tablet PO SCH (07:59)
[2019-05-25] MEDS: magnesium Cl slow-release 64mg tablet PO SCH ×2 (07:59→19:58)
[2019-05-25] MEDS: diltiazem CD 180mg cap (once-daily) PO SCH (08:00)
[2019-05-25] MEDS: K and/or MAG REPLACEMENT MC SCH (08:00)
[2019-05-25] MEDS: insulin Lispro (HumaLOG) vial - multi-dose SQ SCH ×3 (08:59→19:57)
[2019-05-25 10:00] VITALS: BP 91/38
[2019-05-25] MEDS ORDERED: furosemide 40mg/4ml inj IV ONE (11:05)
[2019-05-25 14:00] VITALS: BP 89/38
--- NOTE | 2019-05-25 17:41 | NUR ---
Orienteer documentation: I have reviewed and agree with all interventions, assessments performed and documented by Hiwot SERRANO.
[2019-05-25 18:00] VITALS: BP 90/41
--- NOTE | 2019-05-25 18:00 | NUR ---
Patient in room MED 314. I have received report from Swati SERRANO and had the opportunity to ask questions and assume patient care.
--- NOTE | 2019-05-25 18:13 | NUR ---
Problems reprioritized. Patient report given, questions answered & plan of care reviewed with MAGGIE Hunter.
[2019-05-25] MEDS: lisinopril 2.5mg tablet PO SCH (21:00)
[2019-05-25] MEDS: warfarin 3mg tablet PO ONE ×2 (21:40→23:09)
[2019-05-25] MEDS: insulin glargine (Lantus) pen - multi-dose SQ SCH (21:55)
--- NOTE | 2019-05-25 21:59 | NUR ---
Patient given 12 units lantus; patient got 20 units last night based on protocol and adjustment for 1503 time of lantus given in ICU 05/23 prior to transfer. Patient requested 12 units only bharath,consulted with rail car repairmanMAGGIE Jiménez RN and administered 12 units Lantus 05/25 at 2145
[2019-05-25 22:00] VITALS: BP 98/41
[2019-05-26 02:00] VITALS: BP 86/47
[2019-05-26 06:00] VITALS: BP 83/38
--- NOTE | 2019-05-26 06:35 | NUR ---
I have received report from Elsa SERRANO and had the opportunity to ask questions and assume patient care.
[2019-05-26 07:19] LABS: BASOPHILS % (AUTO) 0.1 % (0-1); EOSINOPHILS # (AUTO) 0.2 X10'3 (0-0.9); EOSINOPHILS % (AUTO) 2.2 % (0-6); HEMOGLOBIN 9.2 g/dl (12.0-16.0); LYMPHOCYTES # (AUTO) 0.8 X10'3 (1.1-4.8); LYMPHOCYTES % (AUTO) 12.1 % (21-51); MEAN CORPUSCULAR HEMOGLOBIN 32.3 PG (27.0-31.0); MEAN CORPUSCULAR HGB CONC 34.1 g/dL (33.0-36.5); MEAN CORPUSCULAR VOLUME 94.7 FL (78-98); MEAN PLATELET VOLUME 8.1 FL (7.4-10.4); MONOCYTES # (AUTO) 0.6 X10'3 (0-0.9); NEUTROPHILS # (AUTO) 5.2 X10'3 (1.8-7.7); NEUTROPHILS % (AUTO) 76.6 % (42-75); PLATELET COUNT 113 X10'3 (140-440); RED BLOOD COUNT 2.85 X10'6 (4.20-5.60); RED CELL DISTRIBUTION WIDTH 14.9 % (11.5-14.5); WHITE BLOOD COUNT 6.8 X10'3 (4.5-11.0)
[2019-05-26 07:42] LABS: ANION GAP 7 (8-16); BLOOD UREA NITROGEN 32 MG/DL (7-18); CALCIUM 8.3 MG/DL (8.5-10.1); CHLORIDE 107 MMOL/L (99-107); CREATININE 0.94 MG/DL (0.40-0.90); GLUCOSE 94 MG/DL (70-104); MAGNESIUM 2.2 MG/DL (1.5-2.4); POTASSIUM 4.8 MMOL/L (3.5-5.1); SODIUM 141 MMOL/L (135-145); TOTAL CARBON DIOXIDE 26.7 MMOL/L (24-32); eGFR 58 ML/MIN
[2019-05-26] MEDS: docusate sod 100mg capsule PO SCH ×2 (08:00→20:25)
[2019-05-26] MEDS ORDERED: furosemide 40mg tablet PO SCH (08:00)
[2019-05-26] MEDS: K and/or MAG REPLACEMENT MC SCH (08:00)
[2019-05-26] MEDS ORDERED: diltiazem CD 120mg capsule (once-daily) PO SCH (08:00)
[2019-05-26] MEDS ORDERED: furosemide 20MG tablet PO SCH (08:59)
[2019-05-26] MEDS: pantoprazole 40mg Tablet.DR PO SCH (09:14)
[2019-05-26] MEDS: magnesium Cl slow-release 64mg tablet PO SCH ×2 (09:14→20:24)
[2019-05-26] MEDS: gabapentin 300mg capsule PO SCH ×2 (09:14→20:24)
[2019-05-26] MEDS: aspirin 81mg tablet.DR PO SCH (09:14)
[2019-05-26] MEDS: cholecalciferol (vitamin D) 400 unit tablet PO SCH (09:14)
[2019-05-26] MEDS: potassium Cl 20 mEq SR tablet PO SCH ×2 (09:15→20:00)
[2019-05-26] MEDS: insulin Lispro (HumaLOG) vial - multi-dose SQ SCH ×3 (09:27→18:54)
--- NOTE | 2019-05-26 10:04 | NUR ---
I spoke with Osorio VALERIO about the pt's BP. The pt. had a 96 systolic this morning and he was ok with giving the Cardizem and Lasix after we cut the Lasix down to 20mg from 40mg.
[2019-05-26 11:00] VITALS: BP 85/49
--- NOTE | 2019-05-26 11:20 | NUR ---
Initial: Pt s/p MVR hx Guillan-Gifford, CHF, HTN, and T2DM A1C <7. RD provided written/verbal MVR/HH diet eds to pt along w/ RD contact information. Pt PO 75-100% meals meeting healing needs; endorses good appetite. LBM 05/25; receiving routine colace w/ MoM PRN. No nutrition concerns at this time. Will continue to monitor. Rec: 1. continue carb controlled/NCS diet per MD 2. routine bowel care Addendum: 05/26/19 at [address] Amended: Links added.
[2019-05-26 15:00] VITALS: BP 100/44
[2019-05-26 18:00] VITALS: BP 98/54
--- NOTE | 2019-05-26 18:20 | NUR ---
Patient in room MED 314. I have received report from MAGGIE Ramires and had the opportunity to ask questions and assume patient care.
--- NOTE | 2019-05-26 18:20 | NUR ---
Problems reprioritized. Patient report given, questions answered & plan of care reviewed with Kervin SERRANO.
[2019-05-26] MEDS: lisinopril 2.5mg tablet PO SCH (20:29)
[2019-05-26] MEDS ORDERED: warfarin 3mg tablet PO ONE (21:00)
[2019-05-26] MEDS: insulin glargine (Lantus) pen - multi-dose SQ SCH (21:39)
[2019-05-26 22:00] VITALS: BP 101/56
[2019-05-27 02:00] VITALS: BP 112/58
[2019-05-27 06:00] VITALS: BP 106/63
--- NOTE | 2019-05-27 06:00 | NUR ---
Reviewed and agreed with MAGGIE Reyes's charting
--- NOTE | 2019-05-27 06:10 | NUR ---
Patient in room MED 314. I have received report from MAGGIE Ryees and had the opportunity to ask questions and assume patient care.
--- NOTE | 2019-05-27 06:20 | NUR ---
Problems reprioritized. Patient report given, questions answered & plan of care reviewed with MAGGIE Phoenix.
[2019-05-27 06:34] LABS: BASOPHILS % (AUTO) 0.1 % (0-1); EOSINOPHILS # (AUTO) 0.4 X10'3 (0-0.9); EOSINOPHILS % (AUTO) 4.9 % (0-6); HEMATOCRIT 27.1 % (35.0-45.0); HEMOGLOBIN 9.5 g/dl (12.0-16.0); LYMPHOCYTES # (AUTO) 0.7 X10'3 (1.1-4.8); LYMPHOCYTES % (AUTO) 10.3 % (21-51); MEAN CORPUSCULAR HEMOGLOBIN 33.2 PG (27.0-31.0); MEAN CORPUSCULAR HGB CONC 34.9 g/dL (33.0-36.5); MEAN PLATELET VOLUME 7.8 FL (7.4-10.4); MONOCYTES # (AUTO) 0.8 X10'3 (0-0.9); MONOCYTES % (AUTO) 10.5 % (2-12); NEUTROPHILS # (AUTO) 5.4 X10'3 (1.8-7.7); NEUTROPHILS % (AUTO) 74.2 % (42-75); PLATELET COUNT 133 X10'3 (140-440); RED BLOOD COUNT 2.85 X10'6 (4.20-5.60); WHITE BLOOD COUNT 7.3 X10'3 (4.5-11.0)
[2019-05-27 06:42] LABS: ALBUMIN 2.9 G/DL (3.4-5.0); ANION GAP 8 (8-16); BLOOD UREA NITROGEN 28 MG/DL (7-18); BUN/CREATININE RATIO 31.8 (6.6-38.0); CALCIUM 8.5 MG/DL (8.5-10.1); CHLORIDE 106 MMOL/L (99-107); CREATININE 0.88 MG/DL (0.40-0.90); GLUCOSE 111 MG/DL (70-104); MAGNESIUM 2.1 MG/DL (1.5-2.4); POTASSIUM 4.7 MMOL/L (3.5-5.1); SODIUM 140 MMOL/L (135-145); eGFR 62 ML/MIN
[2019-05-27] MEDS: potassium Cl 20 mEq SR tablet PO SCH (07:55)
[2019-05-27] MEDS: diltiazem 30mg tablet PO SCH ×2 (07:57→13:49)
[2019-05-27] MEDS: docusate sod 100mg capsule PO SCH (07:57)
[2019-05-27] MEDS: aspirin 81mg tablet.DR PO SCH (07:57)
[2019-05-27] MEDS: cholecalciferol (vitamin D) 400 unit tablet PO SCH (07:57)
[2019-05-27] MEDS: pantoprazole 40mg Tablet.DR PO SCH (07:57)
[2019-05-27] MEDS: magnesium Cl slow-release 64mg tablet PO SCH (07:58)
[2019-05-27] MEDS: gabapentin 300mg capsule PO SCH (07:58)
[2019-05-27] MEDS ORDERED: furosemide 40mg tablet PO SCH (08:00)
[2019-05-27] MEDS: K and/or MAG REPLACEMENT MC SCH (08:00)
[2019-05-27] MEDS: insulin Lispro (HumaLOG) vial - multi-dose SQ SCH ×2 (08:13→13:51)
[2019-05-27 11:00] VITALS: BP 94/47
[2019-05-27 15:00] VITALS: BP 92/45
--- NOTE | 2019-05-27 16:00 | NUR ---
Orientee med administration & documentation: I have reviewed and agree with all interventions, assessments performed and documented by Hiwot SERRANO.
[2019-05-27] MEDS ORDERED: fluconazole 150mg tablet PO STA (16:12)
--- NOTE | 2019-05-27 16:13 | NUR ---
Spoke Osorio VALERIO. Made him aware that lab called to inform us that yeast was growing in the urine. Received orders for diflucan 150mg x 1 dose.
--- NOTE | 2019-05-27 16:30 | NUR ---
Patient stable for discharge to SNF per MD orders. Report called to Sirena at [facility]. PIV discontinued; cannula intact; clean, dry dressing in place. surveillance system monitor removed. All personal belongings collected and sent with patient. Patient wheeled out of facility by randy cargo to be transported by [facility] to [facility] at 1630.
[2019-05-27] MEDS ORDERED: warfarin 7.5mg tablet PO ONE (21:00)
== END 2019-05-27 16:35 | DRG 220 ==
LOC: PAS IN 05:13 → EDSTATUS 08:30 → CICU 2S 12:41 → MED 3N 05-24 18:28
PROVIDERS: ADMIT Thoracic Surgery (Cardiothoracic Vascular Surgery); ATTEND Thoracic Surgery (Cardiothoracic Vascular Surgery)
PROC: 02UJ08Z Supplement Tricuspid Valve with Zooplastic Tissue, Open Approach (ICD-10-PCS; 2019-05-22)
PROC: 5A1221Z Performance of Cardiac Output, Continuous (ICD-10-PCS; 2019-05-22)
PROC: 02L70CK Occlusion of Left Atrial Appendage with Extraluminal Device, Open Approach (ICD-10-PCS; 2019-05-22)
PROC: B24BZZ4 Ultrasonography of Heart with Aorta, Transesophageal (ICD-10-PCS; 2019-05-22)
PROC: 02HV33Z Insertion of Infusion Device into Superior Vena Cava, Percutaneous Approach (ICD-10-PCS; 2019-05-22)
PROC: 4A133B3 Monitoring of Arterial Pressure, Pulmonary, Percutaneous Approach (ICD-10-PCS; 2019-05-22)
PROC: 02HP32Z Insertion of Monitoring Device into Pulmonary Trunk, Percutaneous Approach (ICD-10-PCS; 2019-05-22)
PROC: 02UG08Z Supplement Mitral Valve with Zooplastic Tissue, Open Approach (ICD-10-PCS; principal; 2019-05-22 07:48)
DX: I08.1 Rheumatic disorders of both mitral and tricuspid valves (principal); I50.32 Chronic diastolic (congestive) heart failure; N39.0 Urinary tract infection, site not specified; E11.9 Type 2 diabetes mellitus without complications; E66.9 Obesity, unspecified; G47.30 Sleep apnea, unspecified; I11.0 Hypertensive heart disease with heart failure; I27.20 Pulmonary hypertension, unspecified; I25.10 Atherosclerotic heart disease of native coronary artery without angina pectoris; Z96.641 Presence of right artificial hip joint; Z96.652 Presence of left artificial knee joint; I48.0 Paroxysmal atrial fibrillation; Z82.49 Family history of ischemic heart disease and other diseases of the circulatory system; Z88.0 Allergy status to penicillin; Z68.35 Body mass index [BMI] 35.0-35.9, adult; Z85.3 Personal history of malignant neoplasm of breast; Z79.01 Long term (current) use of anticoagulants; Z79.84 Long term (current) use of oral hypoglycemic drugs; Z92.3 Personal history of irradiation
CPT/HCPCS: 0232T; 93312; 93325; 36415; 36600; 71045; 71046; 71275; 80048; 80053; 81001; 82330; 82435; 82803; 82947; 82948; 83036; 83735; 84100; 84132; 84295; 85018; 85025; 85347; 85384; 85610; 85730; 86885; 86900; 86901; 86920; 87077; 87081; 87088; 87186; 93005; 93880; 94002; 94010; 94667; 94668; 94760; 97110; 97116; 97161; 97530; A4618; A6258; A6449; A7000; A7048; C1713; C1751; C9113; G0378; J0131; J0171; J0690; J1265; J1644; J1815; J1940; J2001; J2150; J2250; J2370; J2720; J2795; J2930; J3370; J3475; J3480; J3490; J7030; J7040; J7050; J7120; P9045; P9047; Q9967

== ENCOUNTER 2019-07-10 11:40 | Inpatient (IN) | payer MEDICARE, OTHER ==
[~2019-07-10] VITALS: Ht 162.6 cm; Wt 87.5 kg
[~2019-07-10 11:40] MED LIST changes: -MALTODEXTRIN/FRUCTOSE 0.68 KCAL/ML LIQUID 296ML BOTTLE PO ONE; -ROPIVAcaine 0.5% (5mg/ml) 30ml vial ONE; -iohexol 350MG/ML 100ml bottle IV ONE; -ringers solution, lacted 1,000 ML IV SCH
[2019-07-10 13:46] LABS: BASOPHILS % (AUTO) 0.3 % (0-1); EOSINOPHILS # (AUTO) 0.2 X10'3 (0-0.9); EOSINOPHILS % (AUTO) 5.3 % (0-6); HEMATOCRIT 34.3 % (35.0-45.0); HEMOGLOBIN 11.5 g/dl (12.0-16.0); LYMPHOCYTES # (AUTO) 0.6 X10'3 (1.1-4.8); LYMPHOCYTES % (AUTO) 15.5 % (21-51); MEAN CORPUSCULAR HEMOGLOBIN 31.6 PG (27.0-31.0); MEAN CORPUSCULAR HGB CONC 33.5 g/dL (33.0-36.5); MEAN CORPUSCULAR VOLUME 94.2 FL (78-98); MEAN PLATELET VOLUME 7.5 FL (7.4-10.4); MONOCYTES # (AUTO) 0.3 X10'3 (0-0.9); MONOCYTES % (AUTO) 8.5 % (2-12); NEUTROPHILS # (AUTO) 2.8 X10'3 (1.8-7.7); NEUTROPHILS % (AUTO) 70.4 % (42-75); PLATELET COUNT 158 X10'3 (140-440); RED BLOOD COUNT 3.64 X10'6 (4.20-5.60); RED CELL DISTRIBUTION WIDTH 14.8 % (11.5-14.5); WHITE BLOOD COUNT 3.9 X10'3 (4.5-11.0)
[2019-07-10 14:00] LABS: PARTIAL THROMBOPLASTIN TIME 39 SECONDS (22-32)
[2019-07-10 14:12] LABS: ALANINE AMINOTRANSFERASE 16 U/L (12-78); ALBUMIN 3.7 G/DL (3.4-5.0); ALBUMIN/GLOBULIN RATIO 0.8 (1.1-1.5); ALKALINE PHOSPHATASE 78 IU/L (46-116); ANION GAP 7 (8-16); ASPARTATE AMINO TRANSFERASE 18 U/L (10-37); BILIRUBIN,TOTAL 0.4 MG/DL (0.1-1.0); BLOOD UREA NITROGEN 34 MG/DL (7-18); BUN/CREATININE RATIO 35.1 (6.6-38.0); CALCIUM 9.1 MG/DL (8.5-10.1); CHLORIDE 103 MMOL/L (99-107); CREATININE 0.97 MG/DL (0.40-0.90); GLUCOSE 95 MG/DL (70-104); POTASSIUM 4.4 MMOL/L (3.5-5.1); SODIUM 137 MMOL/L (135-145); TOTAL CARBON DIOXIDE 27.5 MMOL/L (24-32); TOTAL PROTEIN 8.3 G/DL (6.4-8.2); eGFR 56 ML/MIN
[2019-07-10] MEDS ORDERED: ondansetron/PF 4mg/2ml inj IV PRN (14:25)
[2019-07-10] MEDS ORDERED: magnesium hydroxide 30ml (MOM) UD suspension PO PRN (14:25)
[2019-07-10] MEDS ORDERED: normal saline 1000ml 1,000 ML IV SCH (14:25)
[2019-07-10] MEDS ORDERED: mag hydrox/Alum hydrox/simeth 30ml oral suspension PO PRN (14:25)
[2019-07-10] MEDS ORDERED: acetaminophen 325mg tablet PO PRN (14:25)
[2019-07-10] MEDS ORDERED: morphine 2 MG/ML inj. syringe IV PRN (14:25)
[2019-07-10] MEDS ORDERED: vancomycin/NS 1 GM ADD-VANTAGE 250 ML X 1 DOSE IV ONE (14:40)
[2019-07-10] MEDS ORDERED: vancomycin/NS 1 GM ADD-VANTAGE 250 ML IV ONE (14:45)
[2019-07-10] MEDS ORDERED: CefTRIAXone 2gm/D5W 50ml 50 ML IV ONE (14:45)
[2019-07-10] MEDS ORDERED: DILT240C92 PO (14:50)
[2019-07-10] MEDS ORDERED: CLIN300C54 PO (14:50)
[2019-07-10] MEDS ORDERED: ASCO500C15 PO (14:52)
--- NOTE | 2019-07-10 15:00 | NUR ---
DR HURLEY AND TEODORO NORTH IN TO ASSESS PATIENT AT THIS TIME.
[2019-07-10] MEDS ORDERED: iohexol 300mg/ml 100ml inj. ONE (15:01)
--- NOTE | 2019-07-10 15:10 | NUR ---
PATIENT TO CT AT THIS TIME VIA WHEELCHAIR.
[2019-07-10] MEDS: MESSAGE TO NURSING PO NR (15:15)
--- NOTE | 2019-07-10 15:21 | NUR ---
PATIENT BACK FROM CT AT THIS TIME.
--- NOTE | 2019-07-10 15:37 | NUR ---
Patient in room ED 4. I have received report from SUBWAREHOUSE SUPERVISOR and had the opportunity to ask questions and assume patient care.
[2019-07-10 15:45] VITALS: BP 130/65
--- NOTE | 2019-07-10 16:50 | NUR ---
Dr. Reno at bedside talking to patient, received orders. He plans on consulting Dr. Hunter for possible osteomyelitis infection to post operative sternal wound.
[2019-07-10 18:00] VITALS: BP 92/59
[2019-07-10 18:12] LABS: HEMOGLOBIN A1C 5.4 % (4.5-6.2)
--- NOTE | 2019-07-10 18:47 | NUR ---
DM consult: Pt with A1c 5.4; DM education not warranted at this time. Pt with surgical wound to chest and abrasion to left calf. Wound care has been consulted, pending additional skin assessment. Will continue to follow. Addendum: 07/10/19 at [address] Amended: Links added.
--- NOTE | 2019-07-10 19:17 | NUR ---
Patient in room MED 308. I have received report from Soumya and had the opportunity to ask questions and assume patient care. Addendum: 07/10/19 at 1919 by Kurt Fofana RN Report received from Charlene Dooley.
[2019-07-10] MEDS ORDERED: diltiazem CD 180mg cap (once-daily) PO SCH (21:00)
[2019-07-10] MEDS ORDERED: lisinopril 5mg tablet PO SCH (21:00)
[2019-07-10] MEDS ORDERED: warfarin 3mg tablet PO SCH (21:00)
[2019-07-10] MEDS: potassium Cl 20 mEq SR tablet PO SCH (21:08)
[2019-07-10] MEDS: ascorbic acid 500mg tablet PO SCH (21:09)
[2019-07-10] MEDS: cefepime 2g/NS 100ml ADVANTAGE 100 ML IV SCH (21:10)
[2019-07-10] MEDS: heparin, porcine 5000 units/ml vial SQ SCH (21:11)
[2019-07-10 22:00] VITALS: BP 116/67
[2019-07-11 02:00] VITALS: BP 101/53
[2019-07-11 03:00] LABS: BASOPHILS % (AUTO) 0.5 % (0-1); EOSINOPHILS # (AUTO) 0.2 X10'3 (0-0.9); EOSINOPHILS % (AUTO) 7.4 % (0-6); HEMOGLOBIN 11.2 g/dl (12.0-16.0); LYMPHOCYTES # (AUTO) 0.5 X10'3 (1.1-4.8); LYMPHOCYTES % (AUTO) 15.9 % (21-51); MEAN CORPUSCULAR HEMOGLOBIN 31.6 PG (27.0-31.0); MEAN CORPUSCULAR HGB CONC 34.1 g/dL (33.0-36.5); MEAN CORPUSCULAR VOLUME 92.9 FL (78-98); MEAN PLATELET VOLUME 7.6 FL (7.4-10.4); MONOCYTES # (AUTO) 0.4 X10'3 (0-0.9); MONOCYTES % (AUTO) 11.5 % (2-12); NEUTROPHILS # (AUTO) 2.2 X10'3 (1.8-7.7); NEUTROPHILS % (AUTO) 64.7 % (42-75); PLATELET COUNT 159 X10'3 (140-440); RED BLOOD COUNT 3.56 X10'6 (4.20-5.60); RED CELL DISTRIBUTION WIDTH 14.8 % (11.5-14.5); WHITE BLOOD COUNT 3.4 X10'3 (4.5-11.0)
[2019-07-11 06:30] VITALS: BP 111/60
--- NOTE | 2019-07-11 06:30 | NUR ---
Patient in room MED 308. I have received report from Kurt SERRANO and had the opportunity to ask questions and assume patient care.
--- NOTE | 2019-07-11 06:33 | NUR ---
Problems reprioritized. Patient report given, questions answered & plan of care reviewed with Lizett Villagran .
[2019-07-11] MEDS ORDERED: vitamin D (cholecalciferol) 1,000 unit tablet PO SCH (08:00)
[2019-07-11] MEDS ORDERED: furosemide 40mg tablet PO SCH (08:00)
[2019-07-11] MEDS: potassium Cl 20 mEq SR tablet PO SCH (08:57)
[2019-07-11] MEDS: cefepime 2g/NS 100ml ADVANTAGE 100 ML IV SCH (08:57)
[2019-07-11] MEDS: ascorbic acid 500mg tablet PO SCH (08:58)
[2019-07-11] MEDS: heparin, porcine 5000 units/ml vial SQ SCH (08:58)
--- NOTE | 2019-07-11 09:31 | NUR ---
WOUND INFECTION EDUCATION PROVIDED BY WOUND CARE 1. Patient instructed to call their primary doctor, or go the ED immediately if any of the following symptoms occur: * Increased pain in wound * Increase in drainage from the wound * Redness in the skin surrounding the wound * Warmth in the skin surrounding the wound * Bleeding from the wound * Temperature of 101 or greater 2. If any of these occur while in the hospital tell a nurse immediately. Addendum: 07/11/19 at 0932 by Mando Soares RN Amended: Links added.
[2019-07-11] MEDS: MESSAGE TO NURSING PO NR (10:00)
[2019-07-11] MEDS ORDERED: LINE600T12 PO (12:05)
[2019-07-11 13:28] VITALS: BP 107/44
--- NOTE | 2019-07-11 13:40 | NUR ---
Discussed discharge instructions with patient, verbalizes understanding. Called medication into [facility] pharmacy. Belongings sent with patient, IV removed, tele dc'd. Patient eager to go home. Discharged at this time without event, ambulated out to car per [facility] staff. Patient aware of need to call Dr. Babcock and Wound clinic.
--- NOTE | 2019-07-12 14:41 | NUR ---
DR. CHONG INFORMED THAT BLOOD CULTURES RESULTED AND PATIENT ANTIBIOTICS NEED TO BE CHANGED. I CALLED THAT PATIENT AND LEFT MESSAGE TO CALL BACK SO I CAN VERIFY WHERE SHE WANTS NEW RX SENT TO. PREFERRED PHARMACY IS [facility], [place].
[2019-07-12] MEDS ORDERED: metFORMIN 500mg tablet PO SCH ×2 (16:00)
--- NOTE | 2019-07-12 16:00 | NUR ---
PATIENT STILL HAS NOT CALLED BACK TO VERIFY PREFERRED PHARMACY. SHE HAD PREVIOUS DISCHARGE RX SENT TO [facility] [place]. BASED OFF THIS INFORMATION I FAXED THE RX TO [facility] [place] AND HAVE RECEIVED FAX SENT VERIFICATION THAT PHARMACY RECEIVED ORDER. I CALLED PATIENT AGAIN AND LEFT MESSAGE THAT SHE NEEDS TO MEDICAL LAB SCIENTIST HER NEW RX AT [facility] AND THAT SHE NEED TO STOP TAKING TO OTHER [id number]-[facility]YV[facility].
--- NOTE | 2019-07-13 14:46 | NUR ---
I CALLED PATIENT FOR A 3RD TIME AND LEFT MESSAGE THAT SHE NEEDS TO RESEARCH PROGRAM INTERN HER RX FROM [facility] IN [place]. I ALSO ASKED THAT SHE CALL ACCE UNIT BACK AT [phone] TO CONFIRM THAT SHE HAS RECEIVED THESE MESSAGES AND IS GOING TO COMPLY AND RESEARCH PROGRAM INTERN NEW RX.
--- NOTE | 2019-07-13 14:57 | NUR ---
WAS ABLE TO CONTACT NEXT OF KIN - GABINO, PATIENTS DAUGHTER. I INFORMED HER THAT A NEW RX WAS SENT TO THE [facility] IN [place] AND SHE NEEDS TO PICK IT UP. DAUGHTER STATED SHE WOULD PICK IT UP FOR HER MOM WHEN SHE GETS OFF WORK.
== END 2019-07-11 13:45 | disposition home or self-care (01) | DRG 920 ==
LOC: ER 11:41 → ED HOLD 14:25 → MED 3N 16:02
PROVIDERS: ADMIT Family Medicine; ATTEND Family Medicine
DX: T81.31XA Disruption of external operation (surgical) wound, not elsewhere classified, initial encounter (principal); I48.20 Chronic atrial fibrillation, unspecified; L03.313 Cellulitis of chest wall; Y83.8 Other surgical procedures as the cause of abnormal reaction of the patient, or of later complication, without mention of misadventure at the time of the procedure; I50.9 Heart failure, unspecified; D72.819 Decreased white blood cell count, unspecified; E11.9 Type 2 diabetes mellitus without complications; I11.0 Hypertensive heart disease with heart failure; G47.33 Obstructive sleep apnea (adult) (pediatric); Z88.0 Allergy status to penicillin; Y92.89 Other specified places as the place of occurrence of the external cause; Z95.2 Presence of prosthetic heart valve
CPT/HCPCS: 36415; 71045; 71260; 80053; 82948; 83036; 83605; 84145; 85025; 85610; 85651; 85730; 86140; 87040; 87070; 87077; 87081; 87186; 99285; G0378; J0692; J0696; J1644; J3370; J7030; Q9967

== ENCOUNTER 2019-07-18 09:30 | Day surgery (SDC) | payer MEDICARE, OTHER ==
[~2019-07-18 09:30] MED LIST changes: -ASCO1TAB39 PO; +ASCO500C15 PO; -DILT180C90 PO; +DILT240C92 PO; +LINE600T12 PO
[2019-07-18] MEDS ORDERED: LIDOcaine 2% 5ml jelly ONE (09:44)
== END 2019-07-18 11:05 | disposition home or self-care (01) ==
LOC: WOUND CARE 09:30
PROVIDERS: ATTEND Surgery
DX: T81.31XA Disruption of external operation (surgical) wound, not elsewhere classified, initial encounter (principal); E11.622 Type 2 diabetes mellitus with other skin ulcer; L98.492 Non-pressure chronic ulcer of skin of other sites with fat layer exposed; E11.65 Type 2 diabetes mellitus with hyperglycemia; I48.20 Chronic atrial fibrillation, unspecified; I11.0 Hypertensive heart disease with heart failure; I50.32 Chronic diastolic (congestive) heart failure; G47.33 Obstructive sleep apnea (adult) (pediatric); I25.10 Atherosclerotic heart disease of native coronary artery without angina pectoris; E66.9 Obesity, unspecified; Z92.3 Personal history of irradiation; Z68.35 Body mass index [BMI] 35.0-35.9, adult; Z79.01 Long term (current) use of anticoagulants; Z79.84 Long term (current) use of oral hypoglycemic drugs; Z85.3 Personal history of malignant neoplasm of breast; Z96.652 Presence of left artificial knee joint; Z96.641 Presence of right artificial hip joint; Y83.8 Other surgical procedures as the cause of abnormal reaction of the patient, or of later complication, without mention of misadventure at the time of the procedure; Y92.89 Other specified places as the place of occurrence of the external cause
CPT/HCPCS: 36416; 82948; A4663; A6021; A6154; A6212

== ENCOUNTER 2019-08-01 08:10 | Day surgery (SDC) | payer MEDICARE, OTHER ==
[2019-08-01] MEDS ORDERED: LIDOcaine 2% 5ml jelly ONE (09:37)
== END 2019-08-01 11:00 | disposition home or self-care (01) ==
LOC: WOUND CARE 08:10
PROVIDERS: ATTEND Surgery
DX: T81.31XD Disruption of external operation (surgical) wound, not elsewhere classified, subsequent encounter (principal); E11.622 Type 2 diabetes mellitus with other skin ulcer; L98.492 Non-pressure chronic ulcer of skin of other sites with fat layer exposed; E11.65 Type 2 diabetes mellitus with hyperglycemia; I48.20 Chronic atrial fibrillation, unspecified; I11.0 Hypertensive heart disease with heart failure; I50.32 Chronic diastolic (congestive) heart failure; G47.33 Obstructive sleep apnea (adult) (pediatric); I25.10 Atherosclerotic heart disease of native coronary artery without angina pectoris; E66.9 Obesity, unspecified; Z92.3 Personal history of irradiation; Z68.35 Body mass index [BMI] 35.0-35.9, adult; Z79.01 Long term (current) use of anticoagulants; Z79.84 Long term (current) use of oral hypoglycemic drugs; Z85.3 Personal history of malignant neoplasm of breast; Z96.652 Presence of left artificial knee joint; Z96.641 Presence of right artificial hip joint; Y83.8 Other surgical procedures as the cause of abnormal reaction of the patient, or of later complication, without mention of misadventure at the time of the procedure
CPT/HCPCS: 82948; A4663; A6021; A6154; A6212

== ENCOUNTER 2019-08-08 08:30 | Day surgery (SDC) | payer MEDICARE, OTHER ==
[2019-08-08] MEDS ORDERED: LIDOcaine 2% 5ml jelly ONE (09:23)
== END 2019-08-08 10:17 | disposition home or self-care (01) ==
LOC: WOUND CARE 08:30
PROVIDERS: ATTEND Surgery
DX: T81.31XD Disruption of external operation (surgical) wound, not elsewhere classified, subsequent encounter (principal); E11.622 Type 2 diabetes mellitus with other skin ulcer; L98.492 Non-pressure chronic ulcer of skin of other sites with fat layer exposed; E11.65 Type 2 diabetes mellitus with hyperglycemia; I48.20 Chronic atrial fibrillation, unspecified; I11.0 Hypertensive heart disease with heart failure; I50.32 Chronic diastolic (congestive) heart failure; G47.33 Obstructive sleep apnea (adult) (pediatric); I25.10 Atherosclerotic heart disease of native coronary artery without angina pectoris; E66.9 Obesity, unspecified; Z92.3 Personal history of irradiation; Z68.35 Body mass index [BMI] 35.0-35.9, adult; Z79.01 Long term (current) use of anticoagulants; Z79.84 Long term (current) use of oral hypoglycemic drugs; Z85.3 Personal history of malignant neoplasm of breast; Z96.652 Presence of left artificial knee joint; Z96.641 Presence of right artificial hip joint; Y83.8 Other surgical procedures as the cause of abnormal reaction of the patient, or of later complication, without mention of misadventure at the time of the procedure
CPT/HCPCS: A4663; A6021; A6154; A6212

== ENCOUNTER 2019-08-15 08:44 | Day surgery (SDC) | payer MEDICARE, OTHER ==
[~2019-08-15 08:44] MED LIST changes: -LINE600T12 PO
[2019-08-15] MEDS ORDERED: LIDOcaine 2% 5ml jelly ONE (09:21)
== END 2019-08-15 10:28 | disposition home or self-care (01) ==
LOC: WOUND CARE 08:44
PROVIDERS: ATTEND Surgery
DX: T81.31XD Disruption of external operation (surgical) wound, not elsewhere classified, subsequent encounter (principal); E11.622 Type 2 diabetes mellitus with other skin ulcer; L98.492 Non-pressure chronic ulcer of skin of other sites with fat layer exposed; E11.65 Type 2 diabetes mellitus with hyperglycemia; I48.20 Chronic atrial fibrillation, unspecified; I11.0 Hypertensive heart disease with heart failure; I50.32 Chronic diastolic (congestive) heart failure; G47.33 Obstructive sleep apnea (adult) (pediatric); I25.10 Atherosclerotic heart disease of native coronary artery without angina pectoris; E66.9 Obesity, unspecified; Z92.3 Personal history of irradiation; Z68.35 Body mass index [BMI] 35.0-35.9, adult; Z79.01 Long term (current) use of anticoagulants; Z79.84 Long term (current) use of oral hypoglycemic drugs; Z85.3 Personal history of malignant neoplasm of breast; Z96.652 Presence of left artificial knee joint; Z96.641 Presence of right artificial hip joint; Y83.8 Other surgical procedures as the cause of abnormal reaction of the patient, or of later complication, without mention of misadventure at the time of the procedure
CPT/HCPCS: 97597; A4663; A6021; A6154; A6212

== ENCOUNTER 2019-08-22 08:42 | Day surgery (SDC) | payer MEDICARE, OTHER ==
[2019-08-22] MEDS ORDERED: LIDOcaine 2% 5ml jelly ONE (09:09)
== END 2019-08-22 09:57 | disposition home or self-care (01) ==
LOC: WOUND CARE 08:42
PROVIDERS: ATTEND Nurse Practitioner Family
DX: T81.31XD Disruption of external operation (surgical) wound, not elsewhere classified, subsequent encounter (principal); E11.622 Type 2 diabetes mellitus with other skin ulcer; L98.492 Non-pressure chronic ulcer of skin of other sites with fat layer exposed; E11.65 Type 2 diabetes mellitus with hyperglycemia; I48.20 Chronic atrial fibrillation, unspecified; I11.0 Hypertensive heart disease with heart failure; I50.32 Chronic diastolic (congestive) heart failure; G47.33 Obstructive sleep apnea (adult) (pediatric); I25.10 Atherosclerotic heart disease of native coronary artery without angina pectoris; E66.9 Obesity, unspecified; Z92.3 Personal history of irradiation; Z68.35 Body mass index [BMI] 35.0-35.9, adult; Z79.01 Long term (current) use of anticoagulants; Z79.84 Long term (current) use of oral hypoglycemic drugs; Z85.3 Personal history of malignant neoplasm of breast; Z96.652 Presence of left artificial knee joint; Z96.641 Presence of right artificial hip joint; Y83.8 Other surgical procedures as the cause of abnormal reaction of the patient, or of later complication, without mention of misadventure at the time of the procedure
CPT/HCPCS: 36416; 82948; 97597; A4663; A6021; A6154; A6212

== ENCOUNTER 2019-08-29 09:00 | Day surgery (SDC) | payer MEDICARE, OTHER ==
[2019-08-29] MEDS ORDERED: LIDOcaine 2% 5ml jelly ONE (09:23)
== END 2019-08-29 10:40 | disposition home or self-care (01) ==
LOC: WOUND CARE 09:00
PROVIDERS: ATTEND Nurse Practitioner Family
DX: T81.31XD Disruption of external operation (surgical) wound, not elsewhere classified, subsequent encounter (principal); E11.622 Type 2 diabetes mellitus with other skin ulcer; L98.492 Non-pressure chronic ulcer of skin of other sites with fat layer exposed; E11.65 Type 2 diabetes mellitus with hyperglycemia; I48.20 Chronic atrial fibrillation, unspecified; I11.0 Hypertensive heart disease with heart failure; I50.32 Chronic diastolic (congestive) heart failure; G47.33 Obstructive sleep apnea (adult) (pediatric); I25.10 Atherosclerotic heart disease of native coronary artery without angina pectoris; E66.9 Obesity, unspecified; Z92.3 Personal history of irradiation; Z68.35 Body mass index [BMI] 35.0-35.9, adult; Z79.01 Long term (current) use of anticoagulants; Z79.84 Long term (current) use of oral hypoglycemic drugs; Z85.3 Personal history of malignant neoplasm of breast; Z96.652 Presence of left artificial knee joint; Z96.641 Presence of right artificial hip joint; Y83.8 Other surgical procedures as the cause of abnormal reaction of the patient, or of later complication, without mention of misadventure at the time of the procedure
CPT/HCPCS: 36416; 82948; 97597; A4663; A6021; A6154; A6212

== ENCOUNTER 2019-09-05 08:40 | Day surgery (SDC) | payer MEDICARE, OTHER ==
[2019-09-05] MEDS ORDERED: LIDOcaine 2% 5ml jelly ONE (09:38)
== END 2019-09-05 10:22 | disposition home or self-care (01) ==
LOC: WOUND CARE 08:40
PROVIDERS: ATTEND Surgery
DX: T81.31XD Disruption of external operation (surgical) wound, not elsewhere classified, subsequent encounter (principal); E11.622 Type 2 diabetes mellitus with other skin ulcer; L98.492 Non-pressure chronic ulcer of skin of other sites with fat layer exposed; E11.65 Type 2 diabetes mellitus with hyperglycemia; I48.20 Chronic atrial fibrillation, unspecified; I11.0 Hypertensive heart disease with heart failure; I50.32 Chronic diastolic (congestive) heart failure; G47.33 Obstructive sleep apnea (adult) (pediatric); I25.10 Atherosclerotic heart disease of native coronary artery without angina pectoris; E66.9 Obesity, unspecified; Z92.3 Personal history of irradiation; Z68.35 Body mass index [BMI] 35.0-35.9, adult; Z79.01 Long term (current) use of anticoagulants; Z79.84 Long term (current) use of oral hypoglycemic drugs; Z85.3 Personal history of malignant neoplasm of breast; Z96.652 Presence of left artificial knee joint; Z96.641 Presence of right artificial hip joint; Z95.2 Presence of prosthetic heart valve; Y83.8 Other surgical procedures as the cause of abnormal reaction of the patient, or of later complication, without mention of misadventure at the time of the procedure
CPT/HCPCS: 36416; 82948; 97597; A4663; A6021; A6212

== ENCOUNTER 2019-09-12 08:40 | Day surgery (SDC) | payer MEDICARE, OTHER ==
[2019-09-12] MEDS ORDERED: LIDOcaine 2% 5ml jelly ONE (09:01)
== END 2019-09-12 10:55 | disposition home or self-care (01) ==
LOC: WOUND CARE 08:40
PROVIDERS: ATTEND Surgery
DX: T81.31XD Disruption of external operation (surgical) wound, not elsewhere classified, subsequent encounter (principal); E11.622 Type 2 diabetes mellitus with other skin ulcer; L98.492 Non-pressure chronic ulcer of skin of other sites with fat layer exposed; E11.65 Type 2 diabetes mellitus with hyperglycemia; I48.20 Chronic atrial fibrillation, unspecified; I11.0 Hypertensive heart disease with heart failure; I50.32 Chronic diastolic (congestive) heart failure; G47.33 Obstructive sleep apnea (adult) (pediatric); I25.10 Atherosclerotic heart disease of native coronary artery without angina pectoris; E66.9 Obesity, unspecified; Z92.3 Personal history of irradiation; Z68.35 Body mass index [BMI] 35.0-35.9, adult; Z79.01 Long term (current) use of anticoagulants; Z79.84 Long term (current) use of oral hypoglycemic drugs; Z85.3 Personal history of malignant neoplasm of breast; Z96.652 Presence of left artificial knee joint; Z96.641 Presence of right artificial hip joint; Z95.2 Presence of prosthetic heart valve; Y83.8 Other surgical procedures as the cause of abnormal reaction of the patient, or of later complication, without mention of misadventure at the time of the procedure
CPT/HCPCS: 36416; 82948; 97597; A4663; A6021; A6212

== ENCOUNTER 2019-09-19 08:50 | Day surgery (SDC) | payer MEDICARE, OTHER ==
[2019-09-19] MEDS ORDERED: LIDOcaine 2% 5ml jelly ONE (09:29)
== END 2019-09-19 10:30 | disposition home or self-care (01) ==
LOC: WOUND CARE 08:50
PROVIDERS: ATTEND Surgery
DX: T81.31XD Disruption of external operation (surgical) wound, not elsewhere classified, subsequent encounter (principal); E11.622 Type 2 diabetes mellitus with other skin ulcer; L98.492 Non-pressure chronic ulcer of skin of other sites with fat layer exposed; E11.65 Type 2 diabetes mellitus with hyperglycemia; I48.20 Chronic atrial fibrillation, unspecified; I11.0 Hypertensive heart disease with heart failure; I50.32 Chronic diastolic (congestive) heart failure; G47.33 Obstructive sleep apnea (adult) (pediatric); I25.10 Atherosclerotic heart disease of native coronary artery without angina pectoris; E66.9 Obesity, unspecified; Z92.3 Personal history of irradiation; Z68.35 Body mass index [BMI] 35.0-35.9, adult; Z79.01 Long term (current) use of anticoagulants; Z79.84 Long term (current) use of oral hypoglycemic drugs; Z85.3 Personal history of malignant neoplasm of breast; Z96.652 Presence of left artificial knee joint; Z96.641 Presence of right artificial hip joint; Z95.2 Presence of prosthetic heart valve; Y83.8 Other surgical procedures as the cause of abnormal reaction of the patient, or of later complication, without mention of misadventure at the time of the procedure
CPT/HCPCS: 36416; 82948; 97597; A4663; A6021; A6212

== ENCOUNTER 2019-10-03 08:55 | Outpatient (CLI) | payer MEDICARE, OTHER | END 2019-10-03 11:37 | disposition home or self-care (01) | LOC: WOUND CARE 08:55 → EDSTATUS 09:30 → WOUND CARE 11:37 | PROVIDERS: ATTEND Surgery | DX: T81.31XD Disruption of external operation (surgical) wound, not elsewhere classified, subsequent encounter (principal); E11.622 Type 2 diabetes mellitus with other skin ulcer; L98.492 Non-pressure chronic ulcer of skin of other sites with fat layer exposed; E11.65 Type 2 diabetes mellitus with hyperglycemia; I48.20 Chronic atrial fibrillation, unspecified; I11.0 Hypertensive heart disease with heart failure; I50.32 Chronic diastolic (congestive) heart failure; G47.33 Obstructive sleep apnea (adult) (pediatric); I25.10 Atherosclerotic heart disease of native coronary artery without angina pectoris; E66.9 Obesity, unspecified; Z92.3 Personal history of irradiation; Z68.35 Body mass index [BMI] 35.0-35.9, adult; Z79.01 Long term (current) use of anticoagulants; Z79.84 Long term (current) use of oral hypoglycemic drugs; Z85.3 Personal history of malignant neoplasm of breast; Z96.652 Presence of left artificial knee joint; Z96.641 Presence of right artificial hip joint; Z95.2 Presence of prosthetic heart valve; Y83.8 Other surgical procedures as the cause of abnormal reaction of the patient, or of later complication, without mention of misadventure at the time of the procedure | CPT/HCPCS: 36416; 82948; G0463 ==

== ENCOUNTER 2021-06-16 10:05 | Inpatient (IN) | payer MEDICARE, OTHER ==
[~2021-06-16] VITALS: Ht 162.6 cm; Wt 84.1 kg
[~2021-06-16 10:05] MED LIST changes: -ASCO500C15 PO; +ASCO500C18 PO
[2021-06-16 11:05] LABS: BASOPHILS % (AUTO) 0.2 % (0-1); EOSINOPHILS # (AUTO) 0.1 X10'3 (0-0.9); EOSINOPHILS % (AUTO) 2.1 % (0-6); HEMATOCRIT 37.8 % (35.0-45.0); HEMOGLOBIN 12.8 g/dl (12.0-16.0); LYMPHOCYTES # (AUTO) 0.5 X10'3 (1.1-4.8); LYMPHOCYTES % (AUTO) 12.1 % (21-51); MEAN CORPUSCULAR HEMOGLOBIN 30.9 PG (27.0-31.0); MEAN CORPUSCULAR HGB CONC 33.8 g/dL (33.0-36.5); MEAN CORPUSCULAR VOLUME 91.6 FL (78-98); MEAN PLATELET VOLUME 7.1 FL (7.4-10.4); MONOCYTES # (AUTO) 0.4 X10'3 (0-0.9); MONOCYTES % (AUTO) 8.2 % (2-12); NEUTROPHILS # (AUTO) 3.5 X10'3 (1.8-7.7); NEUTROPHILS % (AUTO) 77.4 % (42-75); PLATELET COUNT 227 X10'3 (140-440); RED BLOOD COUNT 4.13 X10'6 (4.20-5.60); RED CELL DISTRIBUTION WIDTH 15.3 % (11.5-14.5); WHITE BLOOD COUNT 4.5 X10'3 (4.5-11.0)
[2021-06-16 11:15] LABS: D-DIMER 0.83 MG/L FEU (0-0.50)
[2021-06-16 11:20] LABS: ALANINE AMINOTRANSFERASE 14 U/L (12-78); ALBUMIN 3.7 G/DL (3.4-5.0); ALBUMIN/GLOBULIN RATIO 0.8 (1.1-1.5); ALKALINE PHOSPHATASE 264 IU/L (46-116); ANION GAP 13 (8-16); ASPARTATE AMINO TRANSFERASE 37 U/L (10-37); BILIRUBIN,DIRECT 0.1 MG/DL (0-0.3); BILIRUBIN,TOTAL 0.4 MG/DL (0.1-1.0); BLOOD UREA NITROGEN 45 MG/DL (7-18); BUN/CREATININE RATIO 24.7 (6.6-38.0); CALCIUM 9.8 MG/DL (8.5-10.1); CHLORIDE 103 MMOL/L (99-107); CREATININE 1.82 MG/DL (0.40-0.90); GLUCOSE 105 MG/DL (70-104); LIPASE 76 U/L (73-393); SODIUM 137 MMOL/L (135-145); TOTAL CARBON DIOXIDE 20.7 MMOL/L (24-32); TOTAL PROTEIN 8.5 G/DL (6.4-8.2); TROPONIN I < 0.04 NG/ML (0.0-0.05); eGFR 27 ML/MIN
[2021-06-16 11:27] LABS: POTASSIUM 6.1 MMOL/L (3.5-5.1)
[2021-06-16 12:09] LABS: CLARITY,URINE CLOUDY (Clear); COLOR,URINE YELLOW (Yellow); GLUCOSE, URINE NEGATIVE (Neg); KETONES,URINE NEGATIVE (Neg); LEUKOCYTE ESTERASE ,URINE MODERATE (Neg); NITRITES, URINE NEGATIVE (Neg); OCCULT BLOOD,URINE NEGATIVE (Neg); PROTEIN,URINE NEGATIVE (Neg); UA COLLECTION TYPE NON-SPECIFIED; UROBILINOGEN,URINE 0.2 E.U/dL (0.2-1.0)
[2021-06-16 12:19] LABS: BACTERIA,URINE 3+ /HPF (Neg); RBC,URINE NONE SEEN /HPF (0-2); WBC,URINE 30-50 /HPF (0-4)
[2021-06-16 12:20] LABS: MUCUS STRANDS NONE SEEN /LPF (Neg); SQUAMOUS EPITHELIAL CELL,UR FEW /LPF (FEW); WBC CLUMPS,URINE FEW /HPF (NEGATIVE)
[2021-06-16 13:27] LABS: ALBUMIN 3.7 G/DL (3.4-5.0); ANION GAP 13 (8-16); BLOOD UREA NITROGEN 45 MG/DL (7-18); BUN/CREATININE RATIO 27.6 (6.6-38.0); CALCIUM 9.6 MG/DL (8.5-10.1); CHLORIDE 103 MMOL/L (99-107); CREATININE 1.63 MG/DL (0.40-0.90); GLUCOSE 101 MG/DL (70-104); SODIUM 138 MMOL/L (135-145); eGFR 30 ML/MIN
[2021-06-16 13:29] LABS: POTASSIUM 6.5 MMOL/L (3.5-5.1)
[2021-06-16] MEDS ORDERED: insulin regular, human 10 units/0.1 ml syringe IV ONE ×2 (13:45→15:25)
[2021-06-16] MEDS ORDERED: calcium chloride 100 MG/1 ML inj IV ONE (13:45)
[2021-06-16] MEDS ORDERED: dextrose 50%-water 50ml dispensing syringe IV ONE ×2 (13:45→15:25)
[2021-06-16] MEDS ORDERED: normal saline 1000ml 1,000 ML IV ONE (14:50)
[2021-06-16] MEDS ORDERED: bisacodyl 10mg suppository rectal RC PRN (15:10)
[2021-06-16] MEDS ORDERED: acetaminophen 325mg tablet PO PRN ×2 (15:10)
[2021-06-16] MEDS ORDERED: magnesium hydroxide 30ml (MOM) UD suspension PO PRN (15:10)
[2021-06-16] MEDS ORDERED: mag hydrox/Alum hydrox/simeth 30ml oral suspension PO PRN (15:10)
[2021-06-16] MEDS ORDERED: diphenhydrAMINE 50 mg/ml inj IV PRN (15:10)
[2021-06-16] MEDS ORDERED: ondansetron 4mg rapidly disintigrating tab PO PRN (15:10)
[2021-06-16] MEDS ORDERED: morphine 2 MG/ML inj. syringe IV PRN ×3 (15:10→19:35)
[2021-06-16] MEDS ORDERED: ondansetron/PF 4mg/2ml inj IV PRN (15:10)
[2021-06-16] MEDS ORDERED: HYDROcodone/acetaminophen 5mg/325mg tablet PO PRN (15:10)
[2021-06-16] MEDS ORDERED: diphenhydrAMINE 25mg capsule PO PRN (15:10)
[2021-06-16] MEDS ORDERED: acetaminophen 650mg rectal suppository RC PRN (15:10)
[2021-06-16] MEDS ORDERED: glucagon, human recombinant 1mg kit SUBCUT PRN (15:15)
[2021-06-16] MEDS ORDERED: insulin Lispro (HumaLOG) vial - multi-dose SQ SCH (15:15)
[2021-06-16] MEDS ORDERED: dextrose ORAL solution 15 GM/59 ML bottle PO PRN ×2 (15:15)
[2021-06-16] MEDS ORDERED: MESSAGE TO PHARMACY PO ONE (15:15)
[2021-06-16] MEDS ORDERED: dextrose 50%-water 50ml dispensing syringe IV PRN ×2 (15:15)
[2021-06-16] MEDS ORDERED: CALCIUM GLUC 1gm/50ml NACL,iso 50 ML IV PRN (15:25)
[2021-06-16] MEDS ORDERED: sodium polystyrene sulfonate 15gm/60ml oral suspension PO ONE (15:25)
[2021-06-16] MEDS ORDERED: sodium bicarbonate (8.4%) inj. 1 MEQ/ML ML IV ONE (15:35)
[2021-06-16] MEDS ORDERED: CLINDAMYCIN 300mg/NS 50ml IVPB 50 ML IV SCH (16:00)
[2021-06-16] MEDS ORDERED: WARF-55 PO (16:08)
[2021-06-16 16:18] LABS: C-REACTIVE PROTEIN 1.53 MG/DL (0.0-0.5); CREATINE KINASE 113 U/L (26-192); MAGNESIUM 2.4 MG/DL (1.5-2.4); PHOSPHORUS 4.4 MG/DL (2.3-4.5)
[2021-06-16 16:27] LABS: HEMOGLOBIN A1C 5.8 % (4.5-6.2)
[2021-06-16 16:34] LABS: LACTATE DEHYDROGENASE 294 U/L (81-234)
[2021-06-16 18:18] LABS: PARTIAL THROMBOPLASTIN TIME 41 SECONDS (22-32)
[2021-06-16] MEDS: clindamycin 300mg/D5W 50mL 50 ML IV SCH (18:34)
[2021-06-16] MEDS: morphine 2 MG/ML inj. syringe IV PRN (19:46)
[2021-06-16] MEDS: docusate sod 100mg capsule PO SCH (20:00)
[2021-06-16] MEDS: normal saline 1000ml 1,000 ML IV SCH (20:19)
[2021-06-16] MEDS ORDERED: warfarin 5mg tablet PO ONE (21:00)
[2021-06-16] MEDS ORDERED: temazepam 15mg capsule PO PRN (21:00)
--- NOTE | 2021-06-16 21:58 | NUR ---
REPORT GIVEN TO RICHARD SERRANO
--- NOTE | 2021-06-16 23:30 | NUR ---
Report received from Emergency department MAGGIE Weston. Pt will be transf. soon.
--- NOTE | 2021-06-16 23:50 | NUR ---
Patient arrived via stretcher, able to transfer herself to hospital bed with minimal assist. loose stool was noted during the transf., billie care was provided. Dx: Body aches, UTI r/o sepsis. Hx of Breast cancer, DM II, Acute kidney disease, Hyperkalemia. Had partial mastectomy to left breast 7 years ago. 18 G extended PIV to right upper arm. V/S- BP 106/55, R16, HR 109, O2 96% room air, BG 102, skin check completed, redness noted to lower left buttock. Nares swab completed and sent to lab. Covid-19 negative, fully vaccinated with Pfizer vaccine. Safety measures and comfort provided. Will continue to monitor.
[2021-06-17] VITALS (7 sets, daily range): BP systolic 93–123; BP diastolic 48–83
[2021-06-17] MEDS: clindamycin 300mg/D5W 50mL 50 ML IV SCH ×4 (00:48→23:53)
[2021-06-17] MEDS: normal saline 1000ml 1,000 ML IV SCH ×3 (02:26→22:04)
--- NOTE | 2021-06-17 06:19 | NUR ---
Problems reprioritized. Patient report given, questions answered & plan of care reviewed with MAGGIE Ovalle.
[2021-06-17 07:52] LABS: BASOPHILS % (AUTO) 0.2 % (0-1); EOSINOPHILS # (AUTO) 0.1 X10'3 (0-0.9); EOSINOPHILS % (AUTO) 2.6 % (0-6); HEMATOCRIT 34.5 % (35.0-45.0); HEMOGLOBIN 11.6 g/dl (12.0-16.0); LYMPHOCYTES # (AUTO) 0.4 X10'3 (1.1-4.8); MEAN CORPUSCULAR HEMOGLOBIN 30.9 PG (27.0-31.0); MEAN CORPUSCULAR HGB CONC 33.8 g/dL (33.0-36.5); MEAN CORPUSCULAR VOLUME 91.6 FL (78-98); MEAN PLATELET VOLUME 7.6 FL (7.4-10.4); MONOCYTES # (AUTO) 0.4 X10'3 (0-0.9); NEUTROPHILS # (AUTO) 2.4 X10'3 (1.8-7.7); NEUTROPHILS % (AUTO) 74.2 % (42-75); PLATELET COUNT 193 X10'3 (140-440); RED BLOOD COUNT 3.76 X10'6 (4.20-5.60); RED CELL DISTRIBUTION WIDTH 15.1 % (11.5-14.5); WHITE BLOOD COUNT 3.2 X10'3 (4.5-11.0)
[2021-06-17] MEDS: docusate sod 100mg capsule PO SCH ×2 (08:00→20:00)
[2021-06-17] MEDS: diltiazem CD 120mg capsule (once-daily) PO SCH (08:41)
[2021-06-17] MEDS: pantoprazole 40mg Tablet.DR PO SCH (08:42)
[2021-06-17 09:00] LABS: ALANINE AMINOTRANSFERASE 13 U/L (12-78); ALBUMIN/GLOBULIN RATIO 0.8 (1.1-1.5); ALKALINE PHOSPHATASE 237 IU/L (46-116); ANION GAP 11 (8-16); ASPARTATE AMINO TRANSFERASE 42 U/L (10-37); BILIRUBIN,TOTAL 0.4 MG/DL (0.1-1.0); BLOOD UREA NITROGEN 33 MG/DL (7-18); CHLORIDE 107 MMOL/L (99-107); CHOL/HDL RATIO 3.2 (0.00-4.99); CHOLESTEROL 139 MG/DL (0-200); CREATININE 1.22 MG/DL (0.40-0.90); GLUCOSE 100 MG/DL (70-104); HDL CHOLESTEROL 43 MG/DL (35-60); LDL CHOLESTEROL 62 MG/DL (50-100); POTASSIUM 4.7 MMOL/L (3.5-5.1); SODIUM 140 MMOL/L (135-145); TOTAL CARBON DIOXIDE 22.2 MMOL/L (24-32); TOTAL PROTEIN 6.9 G/DL (6.4-8.2); TRIGLYCERIDES 193 MG/DL (20-135); eGFR 43 ML/MIN
--- NOTE | 2021-06-17 13:07 | NUR ---
PAGER ID: [phone] MESSAGE: [id number] LEX Perez- STILL NO DIET ON HER. PLEASE ADVISE Nida [phone] rECEIVED ORDERS SHORTLY AFTER PAGE
--- NOTE | 2021-06-17 18:10 | NUR ---
Patient in room PCU 3011. I have received report from MAGGIE Ovalle and had the opportunity to ask questions and assume patient care.
--- NOTE | 2021-06-17 18:23 | NUR ---
Problems reprioritized. Patient report given, questions answered & plan of care reviewed with Naheed SERRANO.
[2021-06-18 02:00] VITALS: BP 109/42
[2021-06-18 06:00] VITALS: BP 108/41
--- NOTE | 2021-06-18 06:07 | NUR ---
Problems reprioritized. Patient report given, questions answered & plan of care reviewed with MAGGIE Ovalle.
[2021-06-18] MEDS: diltiazem CD 120mg capsule (once-daily) PO SCH (07:53)
[2021-06-18] MEDS: pantoprazole 40mg Tablet.DR PO SCH (07:53)
[2021-06-18] MEDS: clindamycin 300mg/D5W 50mL 50 ML IV SCH (07:54)
[2021-06-18] MEDS: morphine 2 MG/ML inj. syringe IV PRN (07:54)
[2021-06-18] MEDS: docusate sod 100mg capsule PO SCH (08:00)
[2021-06-18 09:04] LABS: BASOPHILS % (AUTO) 0.2 % (0-1); EOSINOPHILS # (AUTO) 0.1 X10'3 (0-0.9); EOSINOPHILS % (AUTO) 2.2 % (0-6); HEMATOCRIT 32.8 % (35.0-45.0); HEMOGLOBIN 11.1 g/dl (12.0-16.0); LYMPHOCYTES # (AUTO) 0.4 X10'3 (1.1-4.8); LYMPHOCYTES % (AUTO) 12.8 % (21-51); MEAN CORPUSCULAR HEMOGLOBIN 30.8 PG (27.0-31.0); MEAN CORPUSCULAR VOLUME 90.6 FL (78-98); MEAN PLATELET VOLUME 7.5 FL (7.4-10.4); MONOCYTES # (AUTO) 0.3 X10'3 (0-0.9); MONOCYTES % (AUTO) 8.8 % (2-12); NEUTROPHILS # (AUTO) 2.4 X10'3 (1.8-7.7); PLATELET COUNT 187 X10'3 (140-440); RED BLOOD COUNT 3.62 X10'6 (4.20-5.60); WHITE BLOOD COUNT 3.2 X10'3 (4.5-11.0)
[2021-06-18 09:15] LABS: ALANINE AMINOTRANSFERASE 13 U/L (12-78); ALBUMIN 2.7 G/DL (3.4-5.0); ALBUMIN/GLOBULIN RATIO 0.7 (1.1-1.5); ALKALINE PHOSPHATASE 210 IU/L (46-116); ANION GAP 11 (8-16); ASPARTATE AMINO TRANSFERASE 33 U/L (10-37); BILIRUBIN,TOTAL 0.3 MG/DL (0.1-1.0); BLOOD UREA NITROGEN 24 MG/DL (7-18); BUN/CREATININE RATIO 20.9 (6.6-38.0); CALCIUM 8.7 MG/DL (8.5-10.1); CHLORIDE 106 MMOL/L (99-107); CREATININE 1.15 MG/DL (0.40-0.90); GLUCOSE 101 MG/DL (70-104); POTASSIUM 4.2 MMOL/L (3.5-5.1); SODIUM 141 MMOL/L (135-145); TOTAL PROTEIN 6.7 G/DL (6.4-8.2); eGFR 46 ML/MIN
[2021-06-18] MEDS ORDERED: tetrahydrozoline 0.05% 15ml ophthalmic drops EACHEYE SCH (10:00)
--- NOTE | 2021-06-18 10:20 | NUR ---
Kristy SW on unit and agreed to see pt whom just received new dx of cancer and is fairly upset
[2021-06-18 11:00] VITALS: BP 118/63
--- NOTE | 2021-06-18 11:49 | NUR ---
PAGER ID: [phone] MESSAGE: [id number] loli Kong said they wouldn't do the biopsy d/t her INR of 3.8. They also advised having pathology do it. I do not know how to enter [place] [id number]
[2021-06-18] MEDS ORDERED: CIPR-202 PO (12:12)
[2021-06-18] MEDS ORDERED: OXYC-145 PO (12:16)
[2021-06-18 12:28] LABS: A/G RATIO 0.9 (0.7-1.7); ALBUMIN 3.5 g/dL (2.9-4.4); BETA GLOBULIN 1.1 g/dL (0.7-1.3); GAMMA GLOBULIN 1.4 g/dL (0.4-1.8); GLOBULIN, TOTAL 4.1 g/dL (2.2-3.9); M-SPIKE Not Observed g/dL (Not Observed); PROTEIN, TOTAL, SERUM 7.6 g/dL (6.0-8.5)
--- NOTE | 2021-06-18 14:01 | NUR ---
PAGER ID: [phone] MESSAGE: [facility] [phone] COMES AND COMPLETES THE BIOPSIES. YOU CALL AND SET IT UP. THIS IS WHAT THE LAB TOLD ME. NOEL BENTLEY
[2021-06-18 15:00] VITALS: BP 107/50
--- NOTE | 2021-06-18 16:55 | NUR ---
Provided pt with number for Dr Mosher and for [facility] as well as instructions to make apts with these coumadin clinic ( which she will see monday) and primary md Dr Wheeler. pt daughter present and seems quite helpful, and was part of the edu. removed iv , cath tip intact. vss a/ox3 at discharge. Discussed all disch papers, new medications and plan to f/u apts. Pt says she feels clear on instructions. Out via w/c at 1650
== END 2021-06-18 18:00 | disposition home or self-care (01) | DRG 840 ==
LOC: ER 10:05 → ED HOLD 15:14 → PCU 3S 23:48
PROVIDERS: ADMIT Family Medicine; ATTEND Family Medicine
DX: C90.00 Multiple myeloma not having achieved remission (principal); I50.33 Acute on chronic diastolic (congestive) heart failure; N39.0 Urinary tract infection, site not specified; N17.9 Acute kidney failure, unspecified; M84.422A Pathological fracture, left humerus, initial encounter for fracture; E87.5 Hyperkalemia; E11.65 Type 2 diabetes mellitus with hyperglycemia; E86.9 Volume depletion, unspecified; M89.8X9 Other specified disorders of bone, unspecified site; I45.10 Unspecified right bundle-branch block; E11.22 Type 2 diabetes mellitus with diabetic chronic kidney disease; N18.9 Chronic kidney disease, unspecified; Z20.822 Contact with and (suspected) exposure to COVID-19; M79.601 Pain in right arm; I48.91 Unspecified atrial fibrillation; K74.60 Unspecified cirrhosis of liver; M81.0 Age-related osteoporosis without current pathological fracture; T50.2X5A Adverse effect of carbonic-anhydrase inhibitors, benzothiadiazides and other diuretics, initial encounter; Z79.01 Long term (current) use of anticoagulants; Z79.84 Long term (current) use of oral hypoglycemic drugs; Z88.0 Allergy status to penicillin; Z79.899 Other long term (current) drug therapy; Y92.89 Other specified places as the place of occurrence of the external cause
CPT/HCPCS: 36415; 71045; 71250; 74176; 80048; 80053; 80061; 80076; 81001; 82550; 82948; 83036; 83605; 83615; 83690; 83735; 83880; 84100; 84155; 84165; 84443; 84484; 85025; 85379; 85610; 85651; 85730; 86140; 87040; 87081; 87635; 93005; 99285; G0378; J1815; J2270; J3490; J7030